=== PATIENT | male | born 1945 | race Caucasian/White ===

== ENCOUNTER 2020-11-15 10:33 | Inpatient (IN) | payer OTHER ==
[~2020-11-15] VITALS: Ht 180.3 cm; Wt 106.1 kg
[2020-11-15] VITALS (20 sets, daily range): BP systolic 130–174; BP diastolic 67–133
[~2020-11-15 10:33] MED LIST: AMLODIPINE BESY10 MG; MULTIVITAMINS1 EAC7; PERCOCET 5-3251 EACH PO
[2020-11-15 11:02] LABS: ABSOLUTE NEUTROPHILS 7.3 thou/uL (1.4-8.2); BASOPHILS 0.4 % (0.0-2.0); EOSINOPHILS 0.4 % (0.0-3.0); HEMOGLOBIN 14.5 gm/dL (14.0-18.0); LYMPHOCYTES 16.5 % (24.0-44.0); MCH 31.5 pg (26.0-34.0); MCV 95.4 fL (80.0-100.0); MONOCYTES 5.3 % (1.0-8.0); PLATELET COUNT 199 thou/uL (150-400); POLYS 77.4 % (36.0-66.0); RBC 4.61 mil/uL (4.50-6.00); RDW 14.4 % (10.5-14.5); WBC 9.4 thou/uL (4.0-11.0)
[2020-11-15] MEDS ORDERED: CHLORTHALIDONE25 MG PO (11:36)
[2020-11-15] MEDS ORDERED: EZALLOR SPRINKLE5 MG PO (11:36)
[2020-11-15] MEDS ORDERED: COZAAR100 MG PO (11:37)
[2020-11-15 11:46] LABS: ANION GAP 11 mmol/L (7-16); BUN 21 mg/dL (7-18); CALCIUM 10.1 mg/dL (8.5-10.1); CHLORIDE 104 mmol/L (98-107); CO2 21 mmol/L (21-32); GLUCOSE 162 mg/dL (74-106); POTASSIUM 3.9 mmol/L (3.5-5.1); SODIUM 136 mmol/L (136-145)
[2020-11-15 11:55] LABS: TROPONIN-I <0.06 ng/mL (<0.06)
[2020-11-16] VITALS (32 sets, daily range): BP systolic 124–156; BP diastolic 56–96
[2020-11-16 03:37] LABS: HEMATOCRIT 39.1 % (42.0-52.0); MCH 31.8 pg (26.0-34.0); MCHC 33.4 g/dL (28.0-37.0); MCV 95.1 fL (80.0-100.0); RBC 4.11 mil/uL (4.50-6.00); RDW 13.9 % (10.5-14.5); WBC 8.8 thou/uL (4.0-11.0)
[2020-11-16 03:46] LABS: CALCIUM 9.1 mg/dL (8.5-10.1); CREATININE 0.8 mg/dL (0.7-1.3); POTASSIUM 3.9 mmol/L (3.5-5.1)
--- NOTE | 2020-11-16 06:30 | NUR ---
PATIENT A NEW ADMIT FOLLOWING RIGHT PNEUMOTHORAX. PATIENT O/O X4. DENIES ANY RESENT ACCIDENT, TRAUMA OR FALL. 160ML MARKED OUTPUT OVERNIGHT FROM CHEST TUBE. NO CREPITUS, DRESSING CDI, L/S CLEAR, DIMINISHED RIGHT. VSS, AFEBRILE, ADEQUATE UOP 1350ML. RESTING WELL.
--- NOTE | 2020-11-16 07:40 | EKG ---
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 : 1945 Requested By: Kary Durbin Order Number: [id number] MD: Pollo Barrienots Measurements Intervals [place] Rate: 86 P: 107 SC: 163 QRS: 84 QRSD: 95 T: -19 QT: 359 QTc: 430 Interpretive Statements Sinus rhythm Borderline repolarization abnormality No previous ECG available for comparison Electronically Signed On 11-16-2020 7:40:18 TRANSPORTATION DISPATCH MANAGER by Pollo Barrientos [email or web address] <ELECTRONICALLY SIGNED> By: Pollo Barrientos MD, [facility] 11/16/20 0740 1037 [facility] Pollo Barrientos MD, FACC /EPI
--- NOTE | 2020-11-16 13:26 | NUR ---
ALERT AND ORIENTED AND VERY PLEASANT. VITALS STABLE AND STATED MINIMAL PAIN AT THE CHEST TUBE SITE. DIET ADVANCED AND TOLERATING WELL W/O NAUSEA. RIGHT CHEST TUBE TO SUCTION AND TIDALING NOTED. WILL CONTINUE WITH POC.
--- NOTE | 2020-11-16 16:32 | NUR ---
ASSESSMENT: CM REVIEWED CHART AND SPOKE WITH PT. PT IS ALERT AND ORIENTED X4. PT WAS ADMITTED DUE TO RIGHT PNEUMOTHORAX AND CURRENTLY HAS A CHEST TUBE IN PLACE. PT REPORTS THAT THEY LIVE IN A SPLIT LEVEL HOME WITH ABOUT 5 STEPS AND HANDRAILS ON EACH LEVEL. PT REPORTS THAT HE NORMALLY AMBULATES INDEPENDENTLY BUT DOES HAVE A CANE AND ROLLATER WALKER AT HOME IF NEEDED. PT REPORTS HAVING A GRAB BAR AND BUILT IN BENCH. PT REPORTS HE WAS GOING TO [facility] OUTPATIENT [facility]APY 3X/WEEK PRIOR TO ADMISSION AND REPORTS MAYBE HAVING HH YEARS AGO. PT REPORTS NEVER BEING TO A SNF. CM DISCUSSED ROLE. PT IS HOPEFUL HE WILL HAVE NO NEEDS AT DISCHARGE. CM WILL CONTINUE TO FOLLOW TO ASSIST NEEDED.
[2020-11-17] VITALS (22 sets, daily range): BP systolic 117–160; BP diastolic 44–96
--- NOTE | 2020-11-17 05:03 | NUR ---
PATIENT A/OX4. DENIES PAIN @ REST, 2/10 WITH MOVEMENT. CHEST TUBE IN PLACE, INTERMITTENT AIR BUBBLING THROUGH THE WATER SEAL CHAMBER WHEN PT COUGHS, NO CREPITUS NOTED AND TIDALING IS NORMAL.CHEST TUBE OUTPUT 100ML OVER NIGHT. UOP 1725ML AND NO BM. TEMP 98.8 THIS AM AND VSS.
--- NOTE | 2020-11-17 15:06 | NUR ---
PT RESTING COMFORTABLY TODAY. RIGHT CHEST TUBE IS TO WATER SEAL AND WAS CLAMMPED BY DR ARNOLD. ADEQUATE DIETARY INTAKE, ADEQUATE UOP, AFEBRILE, NO BM. PT HAS BEEN UPDATED AND EDUCATED ON PT CONDITION AND POC. LABS/IMAGES/MEDS REVIEWED PER [facility] POLICY. PT PROGRESSING TOWARDS POC.
--- NOTE | 2020-11-17 17:13 | NUR ---
PT TRANSFERED TO THE UNIT FROM THE ICU - ORIENTED TO ROOM AND BEDSPACE - ASSESSMENT CHARTED - PT WITH CO'S OF PAIN IN LEGS AND SCIATICA - GIVEN HYDOCODONE REQUESTED. MARTITA DIET AND FLUIDS. INTO VISIT. NO CO'S AT THE PRESENT TIME.
--- NOTE | 2020-11-18 04:03 | NUR ---
SLEPT MOST OF SHIFT. PAIN MEDICATION GIVEN FOR LEGS PAINS WITH NOTED RELIEF. MOVES SELF IN BED. CHEST TUBE REMAINS CLAMPED. NO COMPLAINTS OF SHORTNESS OF AIR OR CHEST PAIN. WORKING ON GOALS AND PLAN OF CARE FOR NOC. PROGRESSING SLOWLY TOWARDS DISCHARGE GOALS. CONTINUE TO ASSES CLOSELY.
[2020-11-18 05:31] VITALS: BP 126/49
[2020-11-18 07:26] VITALS: BP 123/65
[2020-11-18 11:07] VITALS: BP 104/54
[2020-11-18 15:34] VITALS: BP 119/59
--- NOTE | 2020-11-18 16:57 | NUR ---
ASSUMED CARE PT APPROX 1050. PT ALERT AND ORIENTED. C/O PAIN IN LEGS MANAGED WITH PO PAIN MEDS. O2 SATS WNL 2-3 L. AT APPROX 1430 RADIOLOGY INFORMED NURSE OF LUNG BEING DEFLATED AND CHEST TUBE NOT SEEN ON XRAY. PHYSICIAN NOTIFIED. CHEST TUBE REINSERTED BY WASTEWATER ENGINEER. CXR ORDERED FOR CONFIRMATION OF PLACEMENT. PT C/O SORENESS AT SITE MANAGED WITH IV PAIN MEDS. OLD CHEST TUBE INSERTION SITE STITCHED AND DRESSED. PT CURRENTLY RESTING IN BED DENIES NEEDS AT THIS TIME. WILL CONTINUE TO MONITOR AND FOLLOW POC. WILL PASS ON TO NOC RN.
[2020-11-18 20:30] VITALS: BP 94/61
[2020-11-19 02:25] VITALS: BP 119/54
[2020-11-19 04:45] VITALS: BP 106/51
--- NOTE | 2020-11-19 07:19 | EKG ---
[place] [address] [facility] [place] [address] ELECTROCARDIOGRAM REPORT Name: CLEVE GRANGER Room #: 212-P ADM IN M.R.#: [id number] Admission: 11/15/20 Attend Phys: Elie Ramos MD Discharge: Date of : 47 Report #: [id number] [facility] Test Date: 2020-11-19 Test Time: 06:30:19 Pat Name: CLEVE GRANGER Department: Room: 212 P Gender: M Detective: 2N : 1945 Requested By: Sherrie Rivera Order Number: [id number] MD: Jorden Jay Measurements Intervals [place] Rate: 125 P: WA: QRS: 60 QRSD: 90 T: 7 QT: 326 QTc: 471 Interpretive Statements Atrial fibrillation Borderline repol abnrm, inferolateral leads Baseline wander in lead(s) V1 Compared to ECG 11/15/2020 10:37:34 Sinus rhythm no longer present Electronically Signed On 11-19-2020 7:19:07 FIBERLINE SUPERVISOR by Jorden Jay [email or web address] <ELECTRONICALLY SIGNED> By: Jorden Jay MD, [facility] 11/19/20718 9 9 Jorden Jay MD, [facility] /EPI
[2020-11-19 08:07] VITALS: BP 114/62
--- NOTE | 2020-11-19 08:40 | NUR ---
0600 PATIENT SLEPT MOST OF SHIFT. CHEST TUBE TO CONTINOUS -40 SUCTION. DENIES FEELING OF SHORTNESS OF AIR OR CHEST PAIN. TELEMETRY SHOWS SR/SA MOST OF SHIFT. AT 0555 PATIENT WENT INTO AFIB RATES 110-140's. had one episode of 8 beats VTACH last noc. NOTIFIED BANK CONSULTANT AND ORDERS FOR ONETIME IVP LOPRESSOR. GAVE MEDICATION. 0700 RATE NOW 90-120 AND REMAINS IN AFIB. NOT PROGRESSING TOWARSDS DISCHARGE AT THIS TIME. CONTINUE TO ASSES CLOSELY.
[2020-11-19 09:23] LABS: HEMATOCRIT 37.1 % (42.0-52.0); HEMOGLOBIN 12.3 gm/dL (14.0-18.0); MCH 31.6 pg (26.0-34.0); MCHC 33.1 g/dL (28.0-37.0); MCV 95.6 fL (80.0-100.0); RBC 3.88 mil/uL (4.50-6.00); RDW 14.4 % (10.5-14.5); WBC 10.4 thou/uL (4.0-11.0)
[2020-11-19 09:33] LABS: CALCIUM 9.2 mg/dL (8.5-10.1); CREATININE 1.7 mg/dL (0.7-1.3); POTASSIUM 3.9 mmol/L (3.5-5.1)
--- NOTE | 2020-11-19 11:42 | 2DMMODE ---
[facility] [place] [place] [address] 2 D/M-MODE ECHOCARDIOGRAM Name: CLEVE GRANGER Room #: 212-P ADM IN M.R.#: [id number] Admission: 11/15/20 Attend Phys: Elie Ramos MD Discharge: Date of : 47 Report #: [id number] THIS REPORT FOR: cc: DORI DOWLING Physician not on staff Ander Nogueira MD ~ APPROVED REPORT Study performed: 11/19/2020 10:22:17 EXAM: Comprehensive 2D, Doppler, and color-flow Echocardiogram Patient Location: Bedside Room #: 212 Status: routine BSA: 2.17 HR: 90 bpm BP: 114/62 mmHg Rhythm: Atrial Fibrillation Other Information Study Quality: Adequate Indications Atrial Fibrillation Hypertension/HDD 2D Dimensions RVDd: 34.10 mm IVSd: 13.65 (7-11mm) LVOT Diam: 19.44 (18-24mm) LVDd: 40.56 mm PWd: 10.39 (7-11mm) LVDs: 23.05 (25-40mm) Volumes Left Atrial Volume (Systole) Single Plane 4CH: 51.65 mL Single Plane 2CH: 49.76 mL LA ESV Index: 29.00 mL/m2 Aortic Valve AoV Peak Otilio.: 1.30 m/s AO Peak Gr.: 6.74 mmHg LVOT Max P.00 mmHg LVOT Max V: 1.00 m/s JANET Vmax: 2.29 cm2 [facility] [address] [place] [address] 2 D/M-MODE ECHOCARDIOGRAM Name: CLEVE GRANGER Room #: 212-P ADM IN M.R.#: [id number] Admission: 11/15/20 Attend Phys: Elie Ramos MD Discharge: Date of : 47 Report #: [id number] Pulmonary Valve PV Peak Otilio.: 1.26 m/s PV Peak Gr.: 6.33 mmHg Left Ventricle The left ventricle is normal size. There is normal LV segmental wall motion. There is normal left ventricular wall thickness. Left ventricular systolic function is normal. The left ventricular ejection fraction is within the normal range. LVEF is 55-60%. This study is not technically sufficient to allow evaluation of the LV diastolic function due to atrial fibrillation. Right Ventricle The right ventricle is normal size. The right ventricular systolic function is normal. Atria The left atrium size is normal. The right atrium size is normal. Aortic Valve The aortic valve is normal in structure. No aortic regurgitation is present. There is no aortic valvular stenosis. Mitral Valve The mitral valve is normal in structure. There is no mitral valve regurgitation noted. No evidence of mitral valve stenosis. Tricuspid Valve The tricuspid valve is normal in structure. There is no tricuspid valve regurgitation noted. Pulmonic Valve The pulmonary valve is normal in structure. There is no pulmonic valvular regurgitation. Great Vessels The aortic root is normal in size. The inferior vena cava is not well visualized. Pericardium There is no pericardial effusion. <Conclusion> The left ventricle is normal size. LVEF is 55-60%. The aortic valve is normal in structure. [facility] [address] [place] [address] 2 D/M-MODE ECHOCARDIOGRAM Name: CLEVE GRANGER Room #: 212-P ADM IN M.R.#: [id number] Admission: 11/15/20 Attend Phys: Elie Ramos MD Discharge: Date of : 47 Report #: [id number] The mitral valve is normal in structure. The tricuspid valve is normal in structure. The pulmonary valve is normal in structure. There is no pericardial effusion. <ELECTRONICALLY SIGNED> By: Ander Nogueira MD 11/19/20 1142 1142 114 Ander Nogueira MD /INF
[2020-11-19 11:50] VITALS: BP 126/67
[2020-11-19 15:53] VITALS: BP 113/55
--- NOTE | 2020-11-19 18:34 | NUR ---
ASSUMED CARE OF PT AT SHIFT CHANGE. ASSESSMENTS CHARTED. MEDS GIVEN PER JAN. PT A&OX2, C/O PAIN TREATED WITH PO MEDS WITH PARTIAL RELIEF. CARDIZEM DRIP CONTINUES. WILL CONTINUE TO MONITOR AND FOLLOW POC.
[2020-11-19 19:43] VITALS: BP 112/50
[2020-11-20 00:31] VITALS: BP 101/51
[2020-11-20 03:23] VITALS: BP 101/54
--- NOTE | 2020-11-20 06:41 | NUR ---
SLEPT PART OF SHIFT. WATCHING TV AT TIMES. PAIN MEDICATION GIVEN EVERY 4 HOURS NEEDED. STATES NON CARDIAC CHEST PAIN IS BETTER AND SO IS LEG PAINS. CHEST TUBE REMAINS TO WALL SUCTION -40. WORKING ON GOALS AND PLAN OF CARE FOR NOC. CONTINUE TO ASSES CLOSELY.
[2020-11-20 08:45] VITALS: BP 91/46
[2020-11-20 08:57] LABS: CALCIUM 9.2 mg/dL (8.5-10.1); CREATININE 1.6 mg/dL (0.7-1.3); POTASSIUM 3.3 mmol/L (3.5-5.1)
[2020-11-20 11:55] VITALS: BP 97/47
--- NOTE | 2020-11-20 15:49 | NUR ---
PT ACCEPTED TO 5 INPATIENT REHAB WITH ANTICIPATED TRANSFER THURSDAY 11/23. PT WILL NEED A NEGATIVE COVID TEST 24-48 HOURS PRIOR TO ADMISSION.
[2020-11-20 17:15] VITALS: BP 99/71
--- NOTE | 2020-11-20 17:47 | NUR ---
PT/OT/5N following. Per the rehab operation supervisor, pt evaluated and would be a good acute rehab candidate once chest tube and cardizem gtt dc'd. Will need new covid test. They would have a bed for him on Monday if ready.
--- NOTE | 2020-11-20 19:36 | NUR ---
ASSUMED CARE PT SHIFT CHANGE. ASSESSMENTS CHARTED.MEDS GIVEN PER JAN VSS BP SOFT- MONITORED. C/O PAIN MANAGED WITH PO PAIN MEDS. CHEST TUBE REMAINS INTACT TO -20 SUCTION. PT UP WITH PHYS THERPAY TOLERATING LESS THAN ADEQUATE- SOB AND HR HIGH. DILT GTT TITRATED PER ORDERS. CURRENTLY INFUSING 5MG/HR. SPOUSE UPDATED ON POC. CURRENTLY RESTING IN BED. PLAN FOR DR GONZALEZ CONSULT AND POSSIBLE REHAB ADMISSION. CONTINUING TO MONITOR AND FOLLOW POC.
[2020-11-20 20:18] VITALS: BP 132/60; BP 152/59
[2020-11-21 00:30] VITALS: BP 110/51
[2020-11-21 03:38] LABS: CALCIUM 8.6 mg/dL (8.5-10.1); POTASSIUM 3.9 mmol/L (3.5-5.1)
[2020-11-21 04:45] VITALS: BP 98/51
--- NOTE | 2020-11-21 04:56 | NUR ---
CARE ASSUMED 1900. PT ALERT AND ORIENTED. DENIES SOB. CHEST TUBE INTACT. NOTED EXTENSIVE AIR LEAK, EVIDENT IN CHAMBER WATER BUBBLE. PT REPORTS CHEST TUBE SITE PAIN, HYDROCODONE PRN. OVERNIGHT, PT REPORTED FEELING MORE ANXIOUS THAN USUAL. DENIES CHEST PAIN, BUT REPORTS ACID REFLUX. DENTAL HYGIENIST RECORD CENTER COORDINATOR NOTIFIED. HYDROXYZINE X 1, AND CALCIUM CARBONATE GIVEN. PT SODIUM LEVELS @ 128, NPO NOTIFIED, 1 BAG OF NS ORDER. POTASSIUM STABLE THIS AM AFTER REPLACEMENT YESTERDAY. DENIES ANY OTHER CONCERNS. WILL CONTINUE TO MONITOR AND FOLLOW POC.
[2020-11-21 08:03] VITALS: BP 114/62
[2020-11-21 11:28] VITALS: BP 94/62
[2020-11-21 15:46] LABS: HEMATOCRIT 34.9 % (42.0-52.0); HEMOGLOBIN 11.5 gm/dL (14.0-18.0); MCV 93.9 fL (80.0-100.0); RBC 3.71 mil/uL (4.50-6.00); RDW 13.8 % (10.5-14.5); WBC 9.8 thou/uL (4.0-11.0)
[2020-11-21 16:07] LABS: CALCIUM 9.1 mg/dL (8.5-10.1); CREATININE 2.1 mg/dL (0.7-1.3); POTASSIUM 3.9 mmol/L (3.5-5.1)
[2020-11-21 17:33] VITALS: BP 99/56
--- NOTE | 2020-11-21 18:29 | NUR ---
PT IS ALERT AND ORIENTED X4, PLEASANT. PT HAS CHEST TUBE IN R LATERAL CHEST, SET AT -20. PT/OT CONSULTED; PT UP TO CHAIR. DR LORENZO CONSULTED. PT HAS LOWER EXTREMITY PAIN, WITH PAIN IN R KNEE, L SCIATIC PAIN. INCENTIVE SPIROMETER EDUCATION CONDUCTED. PT IS BREATHING ROOM AIR, O2 SAT 96%. POC IS TO CONTINUE TO MONITOR CHEST TUBE SYSTEM FOR AIR LEAK/AIR BUBBLING. FALL PRECAUTIONS IN PLACE. NO CONCERNS AT THIS TIME.
[2020-11-21 20:15] VITALS: BP 125/56
[2020-11-22 03:16] LABS: ABSOLUTE NEUTROPHILS 6.1 thou/uL (1.4-8.2); BASOPHILS 0.7 % (0.0-2.0); EOSINOPHILS 1.1 % (0.0-3.0); HEMOGLOBIN 10.7 gm/dL (14.0-18.0); LYMPHOCYTES 12.8 % (24.0-44.0); MCH 31.8 pg (26.0-34.0); MCHC 33.6 g/dL (28.0-37.0); MCV 94.6 fL (80.0-100.0); MONOCYTES 9.2 % (1.0-8.0); PLATELET COUNT 195 thou/uL (150-400); POLYS 76.2 % (36.0-66.0); RBC 3.38 mil/uL (4.50-6.00); RDW 14.2 % (10.5-14.5)
--- NOTE | 2020-11-22 03:37 | NUR ---
ASSUMED CARE FROM OUTGOING RN @MIDNIGHT. PT A&OX4. IV INTACT WITH FLUIDS INFUSING. CHEST TUBE IN PLACE. URINAL AT BEDSIDE. PAIN MANAGED BY PO PAIN MEDS. FALL PREC IN PLACE AND CALL LIGHT AT REACH WILL CONT TO MONITOR.
[2020-11-22 03:44] LABS: ALBUMIN 2.3 g/dL (3.4-5.0); CALCIUM 8.7 mg/dL (8.5-10.1); MAGNESIUM 2.7 mg/dL (1.8-2.4); PHOSPHORUS 4.6 mg/dL (2.5-4.9); POTASSIUM 4.3 mmol/L (3.5-5.1); TOTAL BILIRUBIN 0.3 mg/dL (0.2-1.0); TOTAL PROTEIN 6.1 g/dL (6.4-8.2)
[2020-11-22 04:45] VITALS: BP 118/47
[2020-11-22 08:00] VITALS: BP 126/51
--- NOTE | 2020-11-22 09:21 | HC ---
[facility] [place] [address] CONSULTATION Name: CLEVE GRANGER Room #: 212-P ADM IN M.R.#: [id number] Admission: 11/15/20 Attend Phys: Elie Ramos MD Discharge: Date of : 47 Report #: [id number] THIS REPORT FOR: cc: DORI DOWLING Physician not on staff Caleb Calhoun MD ~ DATE OF SERVICE: 11/21/2020 We were asked by Dr. Fry to see the patient. HISTORY OF PRESENT ILLNESS: The patient is a 75-year-old with a persistent air leak from right spontaneous pneumothorax. The patient presented to the Emergency Department with chest pain, shortness of breath on 11/15, chest tube was placed and the patient has been followed since that time. Unfortunately, air leak has not sealed. The patient has a remote history of heavy smoking, but he says he quit 16 years ago. Since admission, the patient has had a cardiac echo that shows satisfactory ejection fraction without important valvular abnormalities. The patient states he was in atrial fibrillation when he was admitted, this appears to have been treated with IV diltiazem with resolution, current anticoagulation is only Lovenox from what I can tell given in a therapeutic level. Chest x-ray currently shows chest tube in place with trivial pneumothorax and good expansion, but there is still a small air leak in the chest tube. PAST MEDICAL HISTORY: Significant for hypertension, hyperlipidemia and as mentioned, prior smoking history. MEDICATIONS AT HOME: Includes amlodipine, multivitamin, rosuvastatin, chlorthalidone, losartan. ALLERGIES: None known. SOCIAL HISTORY: Tobacco use in the past, alcohol use presently, the patient is . He is retired, but claims to be an active fellow otherwise. REVIEW OF SYSTEMS: I agree with the review of systems as dictated in the Emergency Department. In addition, however, the patient states that he has been treated for sciatica and low back pain recently. PHYSICAL EXAMINATION: VITAL SIGNS: Today; temperature 36.6, heart rate 80, blood pressure 114/62, respiratory rate 18, and pulse oximetry 96% on 2 liters. HEENT: Normocephalic. No scleral icterus, no arcus. NECK: No mass, no bruit audible. [facility] [address] [place] [address] CONSULTATION Name: CLEVE GRANGER Room #: 212-P ADM IN M.R.#: [id number] Admission: 11/15/20 Attend Phys: Elie Ramos MD Discharge: Date of : 47 Report #: [id number] CHEST: Has some rhonchi on the right side. HEART: Rhythm appears regular. ABDOMEN: Soft, somewhat obese. EXTREMITIES: No clubbing, cyanosis or edema. NEUROLOGIC: No motor or sensory dysfunction. SKIN: No rash or infection. ASSESSMENT: Spontaneous right pneumothorax with persistent air leak. PLAN: If leak persists, then video-assisted thoracoscopy would be appropriate. Risks and details of this were discussed. Options and alternatives were reviewed. The patient understands all of this and agrees. We will follow the patient and determine when surgery is safe. We would like to avoid anything other than IV Lovenox or heparin at this point as anticoagulation would delay surgery. Thank you for the consult. <ELECTRONICALLY SIGNED> By: Caleb Calhoun MD 11/22/20 0921 1217 1441 Caleb Calhoun MD /nt
[2020-11-22 11:39] VITALS: BP 104/52
--- NOTE | 2020-11-22 15:51 | NUR ---
PT ALERT AND ORIENTED X4, PLEASANT. PT STATES HE HAS MORE MOBILITY IN HIS LEGS, AND EXPERIENCING LESS DISCOMFORT. POC INCLUDES PAIN MGMT. PT SEEN BY DR GROVE, DR LORENZO. INTENTION IS SURGERY 11/23/2020. HEPARIN PROTOCOL STARTED. RENAL US CONDUCTED. PT AT THE BEDSIDE. CHEST TUBE DRAIN ASSESSED, DRESSING CLEAN, DRY, INTACT. CHEST TUBE SYSTEM SET AT -20, HAS INTERMITTENT BUBBLING. PT USES IS AT THE BEDSIDE. FALL PRECAUTIONS IN PLACE. NO CONCERNS AT THIS TIME.
[2020-11-22 15:54] VITALS: BP 107/46
[2020-11-22 20:27] VITALS: BP 102/53
[2020-11-23] VITALS (19 sets, daily range): BP systolic 87–127; BP diastolic 41–62
[2020-11-23 03:15] LABS: BASOPHILS 0.6 % (0.0-2.0); EOSINOPHILS 2.9 % (0.0-3.0); HEMATOCRIT 34.3 % (42.0-52.0); HEMOGLOBIN 11.3 gm/dL (14.0-18.0); LYMPHOCYTES 16.4 % (24.0-44.0); MCV 93.9 fL (80.0-100.0); MONOCYTES 10.1 % (1.0-8.0); PLATELET COUNT 239 thou/uL (150-400); RBC 3.65 mil/uL (4.50-6.00); RDW 14.2 % (10.5-14.5); WBC 7.1 thou/uL (4.0-11.0)
[2020-11-23 03:22] LABS: PROTIME 10.3 Seconds (9.3-11.4)
[2020-11-23 03:28] LABS: CALCIUM 9.3 mg/dL (8.5-10.1); CREATININE 1.5 mg/dL (0.7-1.3); MAGNESIUM 2.5 mg/dL (1.8-2.4); PHOSPHORUS 3.7 mg/dL (2.6-4.7); POTASSIUM 4.1 mmol/L (3.5-5.1)
--- NOTE | 2020-11-23 08:37 | NUR ---
ASSESSMENTS CHARTED, MEDS CHARTED GIVEN. PATIENT RESTING IN BED DURING SHIFT. PATIENT HAS STRESS PNEUMOTHORAX WITH CHEST TUBE TO -20 SUCTION, LEAK EXISTS. PATIENT SCHEDULED TO GO TO SURGERY THIS MORNING TO REPAIR LEAK AND BRONCHOSTOMY TODAY. PATIENT WAS NPO SINCE MIDNIGHT FOR SURGERY, PATIENT DID TAKE A SMALL SIP AROUND 0500. PATIENT HAD NOT HAD A BOWEL MOVENT FOR 8 DAYS. PATIENT WAS STARTED ON SUPPOSITORIES AND MIRALAX. PATIENT HAD ONE SMALL BOWEL MOVEMENT OF 6 OR 7 SM PELLETS OF FECAL MATTER. PATIENT WAS TRANSFERED TO PREOP THIS MORNING ABOUT 0630.
--- NOTE | 2020-11-23 10:48 | NUR ---
Pt PLACED ON HOLD FROM P.T. DUE TO SURGERY TODAY. REQUEST NEW POST OP P.T. ORDERS WHEN PT DEEMED STABLE TO PARTICIPATE IN THERAPEUTIC INTERVENTIONS.
--- NOTE | 2020-11-23 11:17 | NUR ---
PT HAVING SURGERY TODAY SO NOT SEEN. REQUEST NEW OT ORDERS S/P SURGERY STATUS MAY CHANGE
--- NOTE | 2020-11-23 18:00 | NUR ---
>>>>>>>>>report received from previous rn. at 1110, pt received in icu #251 per icu bed. attached to quality assurance monitor body, r judson zeroed, optimal waveform & reading 10mm greater than nibp. L pleural chest tube to -20 cm suction, no air leak, flucuation in tubing. afib with frequent brief runs of rvr. pt unable to get comfortable in bed. psychological stress evaluator fentanyl infusing. splinting r lateral chest to decrease discomfort, adequate urine output. present, given icu brochure along with privacy code. she is providing support to pt. >>>>>>>>>>with use of psychological stress evaluator pain level became controlled- down to level 1/10. repositioned in bed for comfort with 2 assist. well tolerated. hr improving as pain is controlled. MISSAEL Cisneros present to provide teaching and support to pt and his . >>>>>>>>>>1600 napped in afternoon with at bedside. when awake pulling 1,000cc on incentive spirometer. >>>>>>>>>>1800 Insulin gtt started for glucose-172. pt motivated, progressing.
[2020-11-24] VITALS (13 sets, daily range): BP systolic 85–124; BP diastolic 44–64
[2020-11-24 05:05] LABS: CREATININE 1.1 mg/dL (0.7-1.3); POTASSIUM 4.3 mmol/L (3.5-5.1)
[2020-11-24 05:15] LABS: HEMATOCRIT 32.5 % (42.0-52.0); HEMOGLOBIN 10.6 gm/dL (14.0-18.0); MCHC 32.7 g/dL (28.0-37.0); MCV 94.9 fL (80.0-100.0); RBC 3.43 mil/uL (4.50-6.00); RDW 14.8 % (10.5-14.5); WBC 13.3 thou/uL (4.0-11.0)
--- NOTE | 2020-11-24 05:42 | NUR ---
Patient stable through the night. Slept on/off. Used Incentive spirometry and TCDB frequently. Pain controlled with PARTS SALVAGER Fentanyl. Blood sugars stable while on insulin gtt. See flow sheet for details. No family called this shift. Patient did speak with family on his cell phone. Patient is progressing towards goals. See documentation on interventions for assessment details.
--- NOTE | 2020-11-24 14:50 | NUR ---
ON-GOING ASSESSMENT: CM REVIEWED CHART. PT CONTINUES TO HAVE CT TO WATER SEAL. PLANS ARE TO DISCHARGE TO 5N ONCE MEDICALLY STABLE. 5N FOLLOWING.
[2020-11-25] VITALS (8 sets, daily range): BP systolic 98–134; BP diastolic 54–71
--- NOTE | 2020-11-25 06:06 | NUR ---
ASSUMED PT CARE AT 1900. VSS. PT A&0X4. PT RESTED WELL. ALL NOC. NO ISSUES. GREAT U/O, 525ML THIS SHIFT. PT IS STABLE, CHEST TUBE INTACT, NO AIRLEAK, NO CREPITUS NOTED. WILL CONTINUE TO CLOSELY MONITOR PT.
--- NOTE | 2020-11-25 08:34 | NUR ---
Assess for length of stay. Pneumothorax and s/p VATS with chest tubes. Eating 90-100% meals, no wt loss. BG elevated and need for SS insulin. Low nutrition risk, awaiting medical stabilization for admit to 5N rehab.
--- NOTE | 2020-11-25 10:29 | PATH ---
[facility] [address] [place] [address] PATHOLOGY RPT PROCEDURE Name: ROMEO VALDOVINOS Room #: 251-P ADM IN M.R.#: [id number] Admission: 11/15/20 Date of : 47 Discharge: Report #: [id number] Path Case #: [id number] [facility] Accession Number: [id number] . 01 Material submitted: . PART A: lung - APEX RIGHT UPPER LOBE. Modifiers: right, upper PART B: lung - RIGHT MIDDLE LOBE BLEB. Modifiers: right, middle lobe PART C: lung - RIGHT UPPER LOBE BLEB. Modifiers: right, upper PART D: lung - RIGHT LOWER LOBE BLEB. Modifiers: right, lower . 01 Clinical history: . VIDEO ASSITSTED THOROSCOPY BRONCHOSCOPY RESECTION BLEBS RIGHT PNEUMOTHORAX . 02 Diagnosis: A. Lung, apex right upper lobe, resection: - Emphysematous changes. - Pleural surface showing chronic inflammation and hemorrhage, history of right pneumothorax. - Negative for malignancy. . B. Lung, right middle lobe bleb, resection: - Fragments lined entirely by fibrinous exudate, reactive pleural surface and inflammation consistent with repair. - Negative for malignancy. . C. Lung, right upper lobe bleb, resection: - Extensive emphysematous changes. - Intraparenchymal hemorrhage along with inflammation and congested vessels. - Fibrinous exudate along with marked reactive mesothelial hyperplasia as well as chronic inflammation consistent with repair. - Negative for malignancy. . D. Lung, right lower lobe bleb, resection: - Marked emphysematous changes. - Congested vessels. - Subpleural cysts. - Pleural surface showing fibrinous exudate along with chronic inflammation and repair. (IUV:pit 11/24/2020) QTP 11/24/2020 1459 Local . 02 Electronically signed: . Sarah Meraz MD, Pathologist [address] [address] PATHOLOGY RPT PROCEDURE Name: ROMEO VALDOVINOS Room #: 251-P ADM IN .R.#: [id number] Admission: 11/15/20 Date of : 47 Discharge: Report #: [id number] Path Case #: [id number] I- [id number] . 01 Gross description: . A. The specimen is received in formalin, labeled "Romeo Valdovinos, apex right upper lobe". Received is a wedge resection of pink-vargas lung tissue with a stapled margin of resection measuring 5.9 x 2.2 x 1.3 cm in greatest dimensions. The armando are removed and the new margin is inked black. Sectioning reveals pink-vargas, spongy cut surfaces throughout. No distinct nodules or lesions are noted grossly. The specimen is submitted representatively in cassettes A1 through A3. . B. The specimen is received in formalin, labeled "Romeo Valdovinos, right middle lobe bleb". Received is a wedge resection of pink-vargas lung tissue with attached pale vargas fibrous capsular tissue with a stapled margin of resection measuring 3.9 x 3.3 x 0.9 cm in greatest dimensions. The armando are removed and the new margin is inked black. Sectioning reveals a previously ruptured structure measuring 4.0 cm, which is devoid of content. The specimen is submitted representatively in cassettes B1 through B3. . C. The specimen is received in formalin, labeled "Romeo Valdovinos, right upper lobe bleb". Received is a wedge resection of pink-vargas lung tissue with a stapled margin of resection measuring 4.8 x 2.0 x 0.5 cm in greatest dimensions. The pleural surface displays an air-filled pocket measuring 1.2 cm filled with air. The armando are removed and the new margin is inked black. Sectioning reveals pink-vargas, spongy cut surfaces with no grossly distinct nodules or lesions. The specimen is submitted entirely in cassettes C1 through C3. . D. The specimen is received in formalin, labeled "Romeo Valdovinos, right lower lobe bleb". Received is a wedge resection of pink-vargas lung tissue with a stapled margin of resection measuring 6.6 x 4.2 x 1.5 cm in greatest dimensions. The armando are removed and the new margin is inked black. Sectioning reveals pink-vargas to pink-red, spongy cut surfaces throughout. No distinct nodules or lesions are noted grossly. The specimen is submitted representatively in cassettes D1 through D3. (CAA; 11/23/2020) QAC/QAC 11/23/2020 1740 Local . 02 Pathologist provided ICD-10: R09.1, R04.89, J98.4 . 02 CPT . 219511, 865251, 290560, 955440 Specimen Comment: A courtesy copy of this report has been sent to [phone], [phone] Specimen Comment: [id number] Specimen Comment: Report sent to / DR EM [facility] [address] [place] [address] PATHOLOGY RPT PROCEDURE Name: ROMEO VALDOVINOS Room #: 251-P ADM IN M.R.#: [id number] Admission: 11/15/20 Date of : 47 Discharge: Report #: [id number] Path Case #: [id number] Specimen Comment: A duplicate report has been generated due to demographic updates. Performed at: [facility] [place] [address], [place], [place] [address] MD Carlos Eduardo Chua MD Phone: [phone] Performed at: [facility] [address], [place] [id number] MD Sarah Meraz MD Phone: [phone]
--- NOTE | 2020-11-25 19:59 | NUR ---
pt transfered to the unit from the icu. pt oriented to room and bedspace. pt up to the bsc for bm - hr elevated with movt and bm - pt had large bm and then back to bed - hr improved. no co's of pain or nausea. appears to be comfortable at the present time.
--- NOTE | 2020-11-26 03:04 | NUR ---
ASSESSED AT START OF SHIFT. PAIN MEDICATION GIVEN FOR LEFT SIDE PAIN. BSG CHECKED AND INSULIN GIVEN. PT ON RA. URINAL BY BEDSIDE AND PT VOIDS. UP WITH SBA TO THE BSC. HAD A HUGE BM AT SHIFT CHANGE. METOPROLOL GIVEN FOR INCREASED HR. FALL PREC IN PLACE.
[2020-11-26 03:35] VITALS: BP 114/71
[2020-11-26 05:06] LABS: CREATININE 0.9 mg/dL (0.7-1.3); POTASSIUM 4.6 mmol/L (3.5-5.1)
[2020-11-26 08:13] VITALS: BP 122/68
[2020-11-26 11:33] VITALS: BP 92/57
--- NOTE | 2020-11-26 13:29 | NUR ---
Case discussed with the care team. Chest tube dc'd today. Elev heart rate addressed with med adjustment. If heart rate stable, can go to [facility] tomorrow. [facility] liason confirms they will have a bed for the pt.
[2020-11-26 15:18] VITALS: BP 106/68
--- NOTE | 2020-11-26 15:20 | NUR ---
PT WORKED WITH PT/OT TODAY, PLAN TO TRANSFER TO REHAB TOMORROW. AFIB/RVR RESOLVED. AFEBRILE, NO BM, ADEQUATE UOP, TOLERATING DIET. PT AND HAVE BEEN UPDATED AND EDUCATED ON PT CONDITION AND POC. PT PROGRESSING TOWARDS POC.
[2020-11-26 19:20] VITALS: BP 115/58
[2020-11-27 04:00] VITALS: BP 128/64
--- NOTE | 2020-11-27 06:30 | NUR ---
PT SLEPT ON AND OFF THROUGH THE NIGHT. A&0X4. USING URINAL AT THE BEDSIDE. AFIB ON THE MONITOR. VSS. FALL PRECAUTIONS IN PLACE; UPX1. PROGRESSING TO TOWARD POC, CONTINUING TO ASSESS ACCORDING TO CARE PLAN.
[2020-11-27] MEDS ORDERED: VITAMIN D21250 MC1 PO (09:36)
[2020-11-27] MEDS ORDERED: XARELTO20 MG PO (09:36)
[2020-11-27] MEDS ORDERED: CARDIZEM CD120 MG PO (09:36)
[2020-11-27] MEDS ORDERED: COZAAR 50 MG TA50 M1 PO (09:36)
[2020-11-27] MEDS ORDERED: PEPCID20 MG PO (09:36)
[2020-11-27] MEDS ORDERED: METOPROLOL SUCC25 M1 PO (09:36)
[2020-11-27] MEDS ORDERED: HYDROCODON-ACE1 EAC7 PO (09:36)
[2020-11-27] MEDS ORDERED: GABAPENTIN 100100 MG PO (09:36)
--- NOTE | 2020-11-27 10:27 | O ---
[facility] [address] [place] [address] OPERATIVE REPORT Name: CLEVE GRANGER Room #: 205-P ADM IN M.R.#: [id number] Admission: 11/15/20 Attend Phys: Elie Ramos MD Discharge: Date of : 47 Report #: [id number] THIS REPORT FOR: cc: DORI DOWLING Physician not on staff Caleb Calhoun MD ~ DATE OF SERVICE: 11/23/2020 PREOPERATIVE DIAGNOSIS: Persistent air leak, status post spontaneous right pneumothorax. POSTOPERATIVE DIAGNOSIS: Persistent air leak, status post spontaneous right pneumothorax. OPERATION: Bronchoscopy, right video-assisted thoracoscopy with wedge resection of blebs and chemical pleurodesis. SURGEON: Caleb Calhoun M.D. DIGITAL COMMENTATOR: MISSAEL Sims. ANESTHESIA: General. INDICATIONS: The patient is a 75-year-old with a small persistent air leak, status post right spontaneous pneumothorax. The patient was admitted with shortness of breath and found to have significant right pneumothorax. Chest tube was placed with good reexpansion of the lung, but there has been a persistent air leak. We also note the patient has a new diagnosis of atrial fibrillation this admission. FINDINGS AND TECHNIQUE: After general anesthesia was established, flexible diagnostic bronchoscopy was performed. No endobronchial lesions were noted. A double lumen endotracheal tube was placed and its position was checked with the bronchoscope. The patient was positioned with right side up. Exposure was obtained through typical video-assisted thoracoscopy ports. There were multiple blebs seen in the lower lobe primarily. There was a small area that was suspicious at the apex of the upper lobe, but largely the pathology seemed to involve the lower lobe. [facility] [address] [address] OPERATIVE REPORT Name: CLEVE GRANGER Room #: 205-P ADM IN M.R.#: [id number] Admission: 11/15/20 Attend Phys: Elie Ramos MD Discharge: Date of : 47 Report #: [id number] A wedge resection was done of the apex of the upper lobe and 3 separate wedge resections were done of the lower lobe to encompass obvious blebs. After the wedge resections were done, the lung was inspected. Hemostasis was satisfactory and no other suspicious areas of lung leak were seen. The right lung was inflated and deflated several times to seek additional leaks. When we were satisfied with the wedge resections, a chest tube was brought to the lowest port and doxycycline solution was instilled. The tube was secured in position and the other ports were closed and no air leak was seen via positive pressure. Incisions were closed and the patient was weaned from anesthesia. The patient tolerated the procedure well. All counts reported as correct. The patient was taken to the recovery area in good condition having tolerated the procedure well. <ELECTRONICALLY SIGNED> By: Caleb Calhoun MD 11/27/20 1027 0927 1001 Caleb Calhoun MD /nt
--- NOTE | 2020-11-27 10:54 | NUR ---
Pt agreeable to dc to [facility] today and has been cleared by the medical team. Pt states he will contact his so she can bring in a walking shoes and a couple changes of clothing for rehab. He is motivated and looking forward to be out of bed more with therapy sessions. Case discussed with the care team.
[2020-11-27 12:20] VITALS: BP 97/49
--- NOTE | 2020-11-27 12:59 | NUR ---
PATIENT IS PROGRESSING TOWARDS OUTCOME GOALS HE IS UP IN THE CHAIR AND AMBULATED WITH PT IN THE HALLWAYS. HEART RATE BRIEFLY TO 140 BUT DECREASED TO 90'S WITH BRIEF REST. WILL CONTINUE TO MONITOR. REPORT CALLED TO TALON THOMAS ON THE REHAB UNIT.
--- NOTE | 2020-11-27 13:26 | NUR ---
PATIENT DISCHARGE TO REHAB WITH BELONGINGS VIA W/C. ACCOMPANIED BY HIS .
== END 2020-11-27 13:28 | DRG 163 ==
LOC: ER 10:33 → EROBS 13:00 → ICU 13:00 → 2N 11-17 16:28 → EROBS 11-23 08:28 → TBACV 11-23 09:50 → ICU 11-23 11:17 → 2N 11-25 18:05
PROVIDERS: Emergency Medicine; Internal Medicine; Nurse Practitioner; Nurse Practitioner Family; Physician Assistant; ADMIT Hospitalist; ATTEND Hospitalist
DX: J93.11 Primary spontaneous pneumothorax (principal); J96.01 Acute respiratory failure with hypoxia; N17.9 Acute kidney failure, unspecified; E87.1 Hypo-osmolality and hyponatremia; E78.5 Hyperlipidemia, unspecified; I10 Essential (primary) hypertension; E55.9 Vitamin D deficiency, unspecified; R63.4 Abnormal weight loss; M54.32 Sciatica, left side; M54.16 Radiculopathy, lumbar region; E11.42 Type 2 diabetes mellitus with diabetic polyneuropathy; M17.0 Bilateral primary osteoarthritis of knee; K59.00 Constipation, unspecified; Z20.822 Contact with and (suspected) exposure to COVID-19; I48.91 Unspecified atrial fibrillation; J98.2 Interstitial emphysema; Y92.89 Other specified places as the place of occurrence of the external cause; Z87.891 Personal history of nicotine dependence; Z68.32 Body mass index [BMI] 32.0-32.9, adult; Z72.89 Other problems related to lifestyle; X58.XXXA Exposure to other specified factors, initial encounter; Y93.89 Activity, other specified; Y99.8 Other external cause status
CPT/HCPCS: 10078; 10081; 10203; 50010; 50101; 50386; 50417; 50455; 50497; 50739; 50740; 52265; 52266; 54118; 56462; 56524; 56526; 56528; 62110; 62900; 70005

== ENCOUNTER 2020-11-27 13:18 | Inpatient (IN) | payer OTHER ==
[~2020-11-27] VITALS: Ht 152.4 cm; Wt 98.2 kg
--- NOTE | ~2020-11-27 | PLAN ---
[facility] [address] [address] REHAB UNIT PLAN OF CARE Name: CLEVE GRANGER Room #: 516-1 ADM IN M.R.#: [id number] Admission: 11/27/20 Attend Phys: Oni Krishnan MD Discharge: Date of : 47 Report #: [id number] THIS REPORT FOR: cc: DORI DOWLING Physician not on staff Oni Krishnan MD ~ DATE OF SERVICE: 11/30/2020 PROGRESS NOTE/OVERALL PLAN OF CARE SUBJECTIVE: The patient is seen back today in followup. He was pleasant, in no distress. Temperature 36.6, pulse 68, respirations 20, blood pressure 101/50. No focal calf swelling. He is motivated for his therapies. Transfers are contact guard. Once up, he is ambulating a longer distance, now up to 170 feet contact guard with a front-wheeled walker. In occupational therapy, lower body dressing is moderate assistance. Upper body dressing is supervision. His endurance is gradually improving. He notes that his low back and lower extremity pain complaints are improved as well. ASSESSMENT: 1. Sciatica with lumbar radiculopathy with pain complaints, improved. 2. Spontaneous pneumothorax, status post chest tube, status post VATS on 11/13/2020. 3. Acute respiratory failure. 4. Atrial fibrillation with rapid ventricular response. 5. Peripheral neuropathy. 6. Electrolyte abnormalities. 7. History of tobacco abuse. 8. Hypertension. 9. Hyperlipidemia. 10. Degenerative arthritis of the knees. 11. Lichen planus. PLAN: The overall plan of care is based on the preadmission screen, post-admission physician evaluation and information garnered from therapy assessments. 1. Estimated length of stay should be hopefully fairly short, may be later this week, 4-7 days I would say. 2. Medical prognosis is reasonably good. 3. Anticipated interventions include the interdisciplinary acute inpatient rehabilitation program. 4. Anticipated functional outcomes would be for the patient to become modified independent at least at the walker level, so that he can return back to the home setting. 5. Discharge destination would be back home with . He does have a split [facility] [address] [place] [address] REHAB UNIT PLAN OF CARE Name: CLEVE GRANGER Room #: 516-1 ADM IN ..#: [id number] Admission: 11/27/20 Attend Phys: Oni Krishnan MD Discharge: Date of : 47 Report #: [id number] level house with a lot of steps, which is a barrier. 6. Expected therapy by discipline includes PT and OT 1-1/2 hours per day each 5 days a week throughout the duration of the acute inpatient rehabilitation stay. 7. The patient will continue to have consultant in ergonomics and safety physicians involved post his thoracic procedure. The patient's prognosis for significant practical improvement within a reasonable period of time appears good. Given the patient's complex medical condition and risk of further medical complication, rehabilitation services could not be safely provided at a lower level of care such as a custodial facility. By: [id number] Oni Krishnan MD /nt
--- NOTE | ~2020-11-27 | H ---
[facility] [place] [address] [address] HISTORY AND PHYSICAL Name: CLEVE GRANGER Room #: 516-1 ADM IN M.R.#: [id number] Admission: 11/27/20 Attend Phys: Oni Krishnan MD Discharge: Date of : 47 Report #: [id number] THIS REPORT FOR: cc: DORI DOWLING Physician not on staff Oni Krishnan MD ~ DATE OF SERVICE: 11/27/2020 HISTORY AND PHYSICAL ADDENDUM HISTORY OF PRESENT ILLNESS: The patient is a 75-year-old male presented with shortness of breath and found to have a spontaneous pneumothorax. Chest tube was placed. Pulmonary and the hospitalist and Cardiology were all involved and he had acute respiratory failure. He continued to have problems with a persistent air leak on 11/23/2020 he underwent bronchoscopy with VATS by Dr. Calhoun. He then went into atrial fibrillation with rapid ventricular response requiring a Cardizem drip. He is being monitored regarding hyponatremia, hypokalemia and acute renal insufficiency. The patient also has a history of sciatica with left lower extremity weakness and was undergoing outpatient physical therapy prior to admission. He had significant decline with his functional gait and mobility with the lower extremity weakness and was undergoing the outpatient physical therapy. He has the lumbar radiculopathy further complicated by medical complexity with generalized debilitation and has now been admitted for acute inpatient rehabilitation. He also has a premorbid peripheral neuropathy with numbness in bilateral feet. Prior medical history as documented please the allergies, social history, and habits. MEDICATIONS: Per JAN. REVIEW OF SYSTEMS: See the 14-point systems. No chest pain, shortness of breath or abdominal discomfort. He has bilateral hip pain stops of the upper thighs. He has distal lower extremity numbness consistent with his peripheral neuropathy. He did not utilize an assistive device premorbidly. PHYSICAL EXAMINATION: GENERAL: The patient was seen on 11/27/2020. He was in no distress. His was in the room. Alert and pleasant. VITAL SIGNS: Temperature 36.4, pulse 78, respirations 20, blood pressure 101/55. HEENT: Appeared to be benign. NECK: No lymphadenopathy. [facility] [address] [place] [address] HISTORY AND PHYSICAL Name: CLEVE GRANGER Room #: 516-1 ADM IN M.R.#: [id number] Admission: 11/27/20 Attend Phys: Oni Krishnan MD Discharge: Date of : 47 Report #: [id number] CHEST: Sounded clear to auscultation. CARDIOVASCULAR: Regular rate and rhythm. ABDOMEN: Bowel sounds positive, nontender. GENITOURINARY AND RECTAL: Deferred. I checked out his chest tube site and he has a dressing in place, which appeared dry. There is a taped over the area. NEUROLOGICAL: He has functional range of motion of both upper extremities. Strength is grade 4/5. Lower extremities appears to have a left foot drop and dorsiflexion basically to neutral. He has decreased sensation, proprioception distal left lower extremity as well as distal right lower extremity. There is 1-2+ distal lower extremity edema. No focal calf swelling. Negative Homans. Proximal strength is probably a grade 3+ to 4-/5. DTRs were trace upper extremities 1. Lower extremities, no clonus. He has been min assist to come to stand and has ambulated a short distance with a front-wheeled walker. ASSESSMENT: A 75-year-old white male with the following problem list: 1. Sciatica with lumbar radiculopathy. 2. He had a left ankle dorsiflexor weakness/foot drop. 3. Premorbid peripheral neuropathy appears idiopathic. No noted history of diabetes. 4. Medical complexity with generalized debilitation. 5. Spontaneous pneumothorax, status post chest tube and subsequent video-assisted thoracoscopic surgery on 11/23/2020. 6. Prior Acute respiratory failure. 7. Prior atrial fibrillation with rapid ventricular rate, now rate controlled. 8. History of electrolyte abnormalities. 9. History of tobacco abuse. 10. Hypertension. 11. Hyperlipidemia. 12. Degenerative arthritis of the knees. PLAN: The patient has been admitted for acute in-hospital inpatient rehabilitation. Please see the documentation as noted. As far as risk of complications, he has multiple medical comorbidities as noted above. Prognosis reasonably good with estimated length of stay probably at least 10 days. Potential barriers would include his multiple medical comorbidities and decreased functional status. The patient meets diagnostic criteria for an acute in-hospital inpatient rehabilitation stay. He meets the medical necessity criteria[place] [address] HISTORY AND PHYSICAL Name: CLEVE GRANGER Room #: 516-1 ADM IN M.R.#: [id number] Admission: 11/27/20 Attend Phys: Oni Krishnan MD Discharge: Date of : 47 Report #: [id number] legal nurse consultant physicians continue to follow. He does have the tolerance for therapies and has appropriate discharge goals back to the home setting. By: [id number] Oni Krishnan MD /amy
[~2020-11-27 13:18] MED LIST changes: +CARDIZEM CD120 MG PO; +CHLORTHALIDONE25 MG PO; +COZAAR 50 MG TA50 M1 PO; +COZAAR100 MG PO; +EZALLOR SPRINKLE5 MG PO; +GABAPENTIN 100100 MG PO; +HYDROCODON-ACE1 EAC7 PO; +METOPROLOL SUCC25 M1 PO; +PEPCID20 MG PO; +VITAMIN D21250 MC1 PO; +XARELTO20 MG PO
[2020-11-27 14:07] VITALS: BP 101/55
--- NOTE | 2020-11-27 16:20 | NUR ---
PATIENT ADMITTED TO ROOM AROUND 2PM WITH AT BEDSIDE. PT IS APPROPRIATE, AND ASKED GOOD QEUSTIONS. NOTED WOUND AT COCCYX, OPEN AND CLEANSED, TREATED WITH Z-GUARD UNTIL WE HAVE WOUND CARE ORDERS. WC CONSULT HAS BEEN PLACED. PT STATED THAT IT IS MUCH IMPROVED FROM WHEN SHE FIRST SAW IT. INCISIONS ARE COVERED BY SURGICAL DRESSINGS WHICH ARE INTACT. PT HAS BLE EDEMA, AND VERBALIZED THAT HE IS WILLING TO USE SCD'S AND JAKUB HOSE IF NEEDED. 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 THIS WAS EVALUATED BY ZAIRA SANCHEZ AND ORDERS RECEIVED FOR THIS MED TO BE USED WHILE HE IS IN THE HOSPITAL. MED WAS GIVEN TO PT'S RN ORESTES.
[2020-11-27 20:00] VITALS: BP 114/49
--- NOTE | 2020-11-28 01:07 | NUR ---
PT ALERT AND ORIENTED X 4. UP IN RECLINER ALL EVENING. TRANSFERRED TO BED AT HS WITH ASSIST X 1. DRESSINGS TO RIGHT SIDE C/D/I. PT HAS RASH ON BACK AND CHEST. PT STATES IT ITCHES A LITTLE BIT AND HE WOULD LET ME KNOW IF IT BECAME ANY WORSE. PT C/O PAIN IN HIS RIGHT SIDE. HYDROCODONE GIVEN AT HS. BED ALARM ON FOR SAFETY. PT APPEARS TO BE SLEEPING ON HOURLY ROUNDS.
[2020-11-28 06:17] LABS: HEMATOCRIT 34.9 % (42.0-52.0); HEMOGLOBIN 11.4 gm/dL (14.0-18.0); MCH 31.3 pg (26.0-34.0); MCHC 32.6 g/dL (28.0-37.0); MCV 95.9 fL (80.0-100.0); RBC 3.64 mil/uL (4.50-6.00); RDW 14.5 % (10.5-14.5); WBC 9.4 thou/uL (4.0-11.0)
[2020-11-28 06:59] LABS: CALCIUM 9.4 mg/dL (8.5-10.1); CREATININE 0.9 mg/dL (0.7-1.3); POTASSIUM 4.6 mmol/L (3.5-5.1)
[2020-11-28 07:40] VITALS: BP 121/70
--- NOTE | 2020-11-28 10:26 | NUR ---
ASSUMED CARE AT 0700. PATIENT IS ALERT AND ORIENTED X4. PATIENT GALEAS'S, TONG HOOKER ARE EQUAL. LUNGS ARE DEMINISHED. ABD IS SOFT WITH BSX4. PATIENT HAS RASH ON CHEST, BACK AND UNDER THE C.T. SITE DRESSING. PATIENT C/O RASH ITCHING. NIGHT NURSE OBTAINED ORDER FOR BENDADRYL FOR ITCHING AND ADMINISTERED IT. UP IN THE CHAIR FOR MEALS. PATIENT HAS L.E. EDEMA, AND IS ENCOURAGED TO ELEVATE HIS LEGS WHEN UP. C.T. SITE DRESSINGS ARE DRY AND INTACT, WITH A RASH UNDER THE RIGHT LOWER DRESSING. UP TO THE BATHROOM WITH ASSIST OF 1 STAFF,GAIT BELT AND WALKER TO VOID GUTIERREZ COLORED URINE. ABD IS SOFT WITH BSX4. FALL AND SAFETY PROTOCOLS IN PLACE. C/O PAIN IN HIS ANKLE AND C.T. SITES. MEDICATED WITH PRN PAIN MED. CONTINUES TO PROGRESS SLOWLY TOWARDS D/C GOALS. WILL CONTINUE TO MONITER.
[2020-11-28 19:40] VITALS: BP 94/55
--- NOTE | 2020-11-29 01:58 | NUR ---
UP IN CHAIR WITH LEGS UP UNTIL TEN PM. PAIN MED, BENADRYL, AND HYDROCORTISONE OINTMENT TO HELP MANAGE PAIN IN RIGHT CHEST WALL AND RASH SURROUNDING IT. BLOOD SUGAR 146 AT HS
[2020-11-29 05:36] LABS: GLYCOHEMOGLOBIN (HGB A1C) 6.1 % (4.8-5.6)
[2020-11-29 07:49] VITALS: BP 107/63
--- NOTE | 2020-11-29 17:48 | NUR ---
ASSUMED CARE OF PT AT 0720. PT IS A&OX4. IS ON ROOM AIR. IS STABLE. REPORTS MILD PAIN AT CHEST TUBE SITE THAT IS BEING MANAGED WITH ORAL PAIN MEDS & OTHER THERAPUETIC TECHNIQUES. 4 SITES BETH, NO DRAINAGE NOTED. PT HAS RASH TO TRUNK, BACK, & LEFT ANKLE. HAS BILAT LE EDEMA. PT KEEPING EVLEVATED. PT IS UP TO CHAIR, ALARM ON. CALL LIGHT WITHIN REACH. PT VOIDS PER URINAL. IS UP WITH 1 ASSIST, GB, WALKER. FALL PRECAUTIONS & HOURLY ROUNDING CONTINUED THIS SHIFT. LABS & VITALS REVIEWED. SPOUSE AT BEDSIDE. WILL CONTINUE TO MONITOR.
[2020-11-29 19:28] VITALS: BP 109/56
--- NOTE | 2020-11-30 01:09 | NUR ---
PT ALERT AND ORIENTED X 4. IN RECLINER DURING EVENING. TRANSFERRED TO BED AT HS WITH ASSIST X 1. VOIDING PER URINAL. RIGHT OLD CHEST TUBE SITES C/D/I. PT HAS RASH ON CHEST, BACK AND LEFT ANKLE. HYDROCORTISONE CREAM APPLIED AT HS. BED ALARM ON FOR SAFETY. PT APPEARS TO BE SLEEPING ON HOURLY ROUNDS.
[2020-11-30 07:30] VITALS: BP 101/50
--- NOTE | 2020-11-30 10:43 | NUR ---
WOUND CONSULT; THE PATIENT WAS IN THE CHAIR UPON ASSESSMENT. HE WAS ABLE TO STAND. THE PATIENT REPORTS HIS CONDITION HAS IMPROVED SINCE ADMIT. HE NOW IS ABLE TO TURN HIMSELF AND STAND. A SMALL STAGE 2 PRESSURE INJURY WAS NOTED TO THE COCCYX MEANSURES 0.5 X 0.5 X 0.2 NO S/S OF INFECTION. I SPENT 15 MINUTES EXPLAINING PRESSURE PREVENTION, OFFLOADING TECHNIQUES WELL BUT NOT LIMITED TO GENERAL WOUND CARE ETC. THE PATIENT IS VERY MOTIVATED, ENGAGED AND VERBALIZED HIS UNDERSTANDING. DISCUSSED WITH RN.
--- NOTE | 2020-11-30 12:46 | NUR ---
REHAB ASSESSMENT: PT ADMITTED TO ARU W/DX OF LUMBAR RAD W/LE WEAKNESS. PT LIVES HOME W/SPOUSE. 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 PT STATED HE DOES NOT LIVE SEDENTARY LIFESTYLE AND IS ACTIVE. PT DRIVES AND IS INDEPENDENT W/ADLS. PT HAS 0 DMES. DENIES HX W/SNF OR HH. PT HAS HAD OUTPT THERAPY FOR BACK IN OCT 2020 AND FOR SHOULDER ABOUT 5/6 Y/A AT [facility]. PT AND SHARE MANAGEMENT RESPONSIBILITIES OF FINANCES AND PT MANAGED HIS OWN MEDICATION. CM TO CONT TO FOLLOW.
--- NOTE | 2020-11-30 12:52 | NUR ---
Nutrition: pt admitted with lumbar radiculopathy, S/P pneumothorax with persistant air leak and need for bronch/VATS on 11/23. Wounds indicated which are small stage 2 pressure ulcer on coccyx and incision from chest tube. Pt eating 100% of meals and supplements. Will decrease ensure to once daily. Pt reports intentional weight loss of 25-30# over the past year by way of cutting down on sweets/bread. Stable weights in hospital. Vitamin D deficiency-supplement started. Also on MVI. Pt orders meals as desired and eats 100% HBV protein foods for wound healing. Consider low nutrition risk.
[2020-11-30 19:50] VITALS: BP 107/47
--- NOTE | 2020-11-30 20:27 | NUR ---
Assumed pt CARE at 0700. pt was in his room resting. pt was alert and oriented x4. pt took his medication whole. pt was calm and co-operative with care. Pt called when he needs assistance. wound care to his coccyx. rinseD with saline water, applied zguard to coccyx.HYDROCORTISONE WAS APPLIED TO CHEST, BACK AND LEFT ANKLE. THERE NO C/O OF PAIN AND DISTRESS AT THIS TIME.PT VISITED. WILL CONTINUE TO MONITOR.
--- NOTE | 2020-12-01 02:30 | NUR ---
TURNING SELF TO SIDE SUGGESTED BY WOUND CARE NURSE. BLOOD SUGAR = 142 AT HS. NOW USING HC LOTION TO CHEST, RIGHT CHEST, AND LEFT ANKLE. APPRECIATES BENADRYL, NOT DESIRING PAIN PILL AT THIS TIME. LEGS ELEVATED
[2020-12-01 07:15] VITALS: BP 110/57
--- NOTE | 2020-12-01 10:01 | NUR ---
ASSUMED CARE AT 0700. PATIENT IS ALERT AND ORIENTED X4. PATIENT GALEAS'S, MANAGER INTERNSHIP ARE EQUAL. LUNGS ARE CLEAR. ABD IS SOFT WITH BSX4. UP TO THE BATHROOM WITH ASSIST OF 1 STAFF AND GAIT BELT TO HAVE BM AND VOID GUTIERREZ COLORED URINE. UP IN THE CHAIR. FALL AND SAFETY PROTOCOLS IN PLACE. C/O PAIN AT CT INCISION SITE AND BACK PAIN. MEDICATED WITH PRN PAIN MED. PATIENT HAS RASH ON CHEST, BACK, LEFT ANKLE. WILL CONTINUE TO MONITER.
[2020-12-01 16:54] VITALS: BP 110/57
--- NOTE | 2020-12-01 16:56 | NUR ---
Team conference held today. DC anticipated Monday12/04/20 home with spouse and home health RN,PT, and OT. Pt will need a FWW. DC recommendations discussed with the pt and his spouse at bedside this afternoon. Spouse will be here mid morning on Monday and can train with therapy at that time. They deny agency preference or listing for hh referral. Dc planner/scheduler to fax referral to [facility]. Provider Plus liason notified of FWW and script left for the liason to issue prior to pt dc Monday. CAre team updated. Pt is doing well and excited to finally be going home.
[2020-12-01 19:55] VITALS: BP 88/51
--- NOTE | 2020-12-02 01:26 | NUR ---
PT ALERT AND ORIENTED X 4. RASH TO LEFT ANKLE, CHEST AND BACK. HYDROCORTISONE CREAM APPLIED AT HS. RIGHT SIDE OLD CHEST TUBE SITES HEALING. PT C/O PAIN IN HIS BACK. HYRDOCODONE GIVEN AT HS. BENADRYL ALSO GIVEN AT HS FOR ITCHING. BED ALARM ON FOR SAFETY. PT APPEARS TO BE SLEEPING ON HOURLY ROUNDS.
[2020-12-02 07:20] VITALS: BP 112/64
--- NOTE | 2020-12-02 14:46 | NUR ---
WOUND F/U; THE COCCYZ WOUND IS IMPROVING. THE QUALITY OF TISSUE IN THE WOUND BED IS IMPROVING. THERE IS NO S/S OF INFECTION. THE PATIENT IS USING PILLOW, AMBULATING AND COOPERATING WITH STAFF TO IMPROVE HIS OVERALL HEALTH. RECOMMENDATIONS; NO CHANGES NEEDED. DISCUSSED WITH RN.
--- NOTE | 2020-12-02 15:05 | NUR ---
ASSUMED CARE AT 0700. PATIENT IS ALERT AND ORIENTED X4. PATIENT GALEAS'S, VIRTUALIZATION CONSULTANT ARE EQUAL. LUNGS ARE CLEAR. ABD IS SOFT WITH BSX4. UP TO THE BATHROOM INDEPENDENTLY WITH WALKER TO VOID GUTIERREZ COLORED URINE. RASH TO HIS BACK, CHEST AND LEFT ANKLES IMPROVING. HYDROCORTIZONE LOTION APPLIED. UP IN THE CHAIR FOR MEALS. FALL AND SAFETY PROTOCOLS IN PLACE. C/O PAIN IN HIS ANKLES AND BACK. MEDICATED WITH PRN PAIN MED. CONTINUES TO PROGRESS TOWARDS D/C GOALS.
--- NOTE | 2020-12-02 17:41 | NUR ---
PT DISCHARGING TODAY TO HOME WITH [facility] FAXED DC ORDERS/SUMMARY SPOKE WITH GOLDIE IN INTAKE SHE RECEIVED ORDERS AND WILL ARRANGE VISITS WITH PT.
[2020-12-02 20:51] VITALS: BP 117/58
--- NOTE | 2020-12-03 02:34 | NUR ---
ASSUMED CARE APPROX 0 EVENING 12/02. PT ALERT AND ORIENTED X4, PLEASANT AND COOPERATIVE. PT MODIFIED INDEP IN ROOM WITH WALKER. PT VOIDING PER URINAL. PT WITH RASH TO BACK AND CREAM APPLIED. PT STATED HE WAS LOOKING FORWARD TO BEING DISCHARGED MONDAY. PT APPEARS TO BE SLEEPING SOUNDLY. CALL LIGHT IN REACH. WILL CONTINUE TO MONITOR.
[2020-12-03 05:38] LABS: MCH 31.1 pg (26.0-34.0); MCHC 33.4 g/dL (28.0-37.0); MCV 93.1 fL (80.0-100.0); PLATELET COUNT 263 thou/uL (150-400); RBC 3.54 mil/uL (4.50-6.00); WBC 4.9 thou/uL (4.0-11.0)
[2020-12-03 06:07] LABS: CALCIUM 8.9 mg/dL (8.5-10.1); CREATININE 1.1 mg/dL (0.7-1.3); MAGNESIUM 1.9 mg/dL (1.8-2.4); POTASSIUM 4.2 mmol/L (3.5-5.1)
[2020-12-03 07:45] VITALS: BP 118/83
[2020-12-03 09:42] LABS: ABSOLUTE NEUTROPHILS 2.9 thou/uL (1.4-8.2)
--- NOTE | 2020-12-03 15:00 | NUR ---
ASSUMED CARE AT 0700. SLEPT FAIRLY WELL. REPORTED DISCOMFORT IN R SHOULDER AND RIBCAGE AREA. MEDICATED WITH HYDROCODONE AND TYLENOL THE SECOND TIME. PAIN RELIEF IMPROVED. HYDROCORTISONE CREAM APPLIED TO BACK FOR MACULAR RASH. APPETITE GOOD, HAD A BM TODAY. DIURESING ADEQUATELY, ON LASIX. PT HAS BOTH LEGS ELEVATED DUE TO EDEMA. PARTICIPATED IN THERAPY. PLAN FOR DC HOME TOMORROW PER PT. MOD I IN ROOM. CONT TO MONITOR.
[2020-12-03 20:47] VITALS: BP 111/70
--- NOTE | 2020-12-04 02:25 | NUR ---
TYLENOL RATHER THAN HYDROCODONE ADEQUATE FOR PAIN. APPRECIATES LOTION AND BENADRYL FOR RASH. ANTICIPATES GOING HOME TODAY. MODIFIED INDEPENDENT IN ROOM WITH WALKER. UP TO TOILET WITHOUT ASSIST.
[2020-12-04 07:51] VITALS: BP 113/66
[2020-12-04 08:24] VITALS: BP 113/66
[2020-12-04] MEDS ORDERED: METOPROLOL SUCC25 M1 PO ×2 (08:24→11:16)
[2020-12-04] MEDS ORDERED: HYDROCORTISONE120 M4 TOP ×2 (08:24→11:16)
[2020-12-04] MEDS ORDERED: FOLIC ACID1 MG PO ×2 (08:24→11:16)
[2020-12-04] MEDS ORDERED: VITAMIN B-12500 MCG PO ×2 (08:24→11:16)
[2020-12-04] MEDS ORDERED: MIRALAX17 GM PO ×2 (08:24→11:16)
[2020-12-04] MEDS ORDERED: CARDIZEM CD120 MG PO ×2 (08:24→11:16)
[2020-12-04] MEDS ORDERED: COLACE100 MG PO ×2 (08:24→11:16)
[2020-12-04] MEDS ORDERED: XARELTO20 MG PO ×2 (08:24→11:16)
[2020-12-04] MEDS ORDERED: PEPCID20 MG PO ×2 (08:24→11:16)
[2020-12-04] MEDS ORDERED: LIPITOR 20 MG T20 M1 PO (08:24)
[2020-12-04] MEDS ORDERED: GABAPENTIN 100100 MG PO ×2 (08:24→11:16)
[2020-12-04] MEDS ORDERED: VITAMIN D21250 MC1 PO ×2 (08:24→11:16)
[2020-12-04] MEDS ORDERED: LASIX 40 MG TAB40 M2 PO ×2 (08:24→11:16)
--- NOTE | 2020-12-04 11:30 | NUR ---
ASSUMED CARE AT 0700. ALERT AND ORIENTATED. PAIN IS STABLE WITH TYLENOL. LUNGS CLEAR. APPETITE GOOD, BOWEL SOUNDS PRESENT, HAD A BM YESTERDAY. BLE EDEMA WITH JAKUB HOSE AND ON LASIX. WEIGHT STABLE. RASH STABLE WITH HYDROCORTISIONE CREAM. CT SITES CLOSED WITH BANDAID. DC PLANNING INSTRUCTIONS DISCUSSED WITH SPOUSE AND PT. PT DC TO HOME WITH HH WITH WALKER. PT ABLE TO WALK FROM WC TO CAR INDEPENDENTLY. LEFT UNIT AT 1120.
--- NOTE | 2020-12-04 11:44 | NUR ---
PT DISCHARGING TODAY TO HOME WITH [facility] FAXED DC ORDERS/SUMMARY SPOKE WITH ALEJANDRO IN INTAKE THEY RECEIVED ORDERS AND WILL ARRANGE VISITS WITH PT.
== END 2020-12-04 11:20 | disposition home health service (06) | DRG 551 ==
PROVIDERS: Nurse Practitioner; Nurse Practitioner Family; ADMIT Physical Medicine & Rehabilitation; ATTEND Physical Medicine & Rehabilitation
DX: M54.16 Radiculopathy, lumbar region (principal); J96.00 Acute respiratory failure, unspecified whether with hypoxia or hypercapnia; I48.20 Chronic atrial fibrillation, unspecified; J93.83 Other pneumothorax; R53.81 Other malaise; I10 Essential (primary) hypertension; E78.5 Hyperlipidemia, unspecified; M17.0 Bilateral primary osteoarthritis of knee; G62.9 Polyneuropathy, unspecified; M54.30 Sciatica, unspecified side; M21.372 Foot drop, left foot; L43.9 Lichen planus, unspecified; R73.03 Prediabetes; L30.9 Dermatitis, unspecified; E53.8 Deficiency of other specified B group vitamins; T81.89XA Other complications of procedures, not elsewhere classified, initial encounter; Z87.891 Personal history of nicotine dependence; Z79.899 Other long term (current) drug therapy; Y84.8 Other medical procedures as the cause of abnormal reaction of the patient, or of later complication, without mention of misadventure at the time of the procedure; Y92.89 Other specified places as the place of occurrence of the external cause
CPT/HCPCS: 10112

== ENCOUNTER 2020-12-11 12:57 | Inpatient (IN) | payer OTHER ==
[~2020-12-11] VITALS: Ht 180.3 cm; Wt 112.5 kg
[~2020-12-11 12:57] MED LIST changes: +COLACE100 MG PO; +FOLIC ACID1 MG PO; +HYDROCORTISONE120 M4 TOP; +LASIX 40 MG TAB40 M2 PO; +LIPITOR 20 MG T20 M1 PO; +MIRALAX17 GM PO; +VITAMIN B-12500 MCG PO
[2020-12-11 13:01] VITALS: BP 83/44
[2020-12-11] MEDS ORDERED: ELIQUIS5 MG PO (13:09)
[2020-12-11 13:50] LABS: ABSOLUTE NEUTROPHILS 5.2 thou/uL (1.4-8.2); BASOPHILS 0.8 % (0.0-2.0); EOSINOPHILS 0.1 % (0.0-3.0); HEMOGLOBIN 12.3 gm/dL (14.0-18.0); LYMPHOCYTES 9.2 % (24.0-44.0); MCHC 33.4 g/dL (28.0-37.0); MCV 89.7 fL (80.0-100.0); MONOCYTES 3.4 % (1.0-8.0); POLYS 86.5 % (36.0-66.0); RBC 4.12 mil/uL (4.50-6.00); RDW 14.2 % (10.5-14.5)
[2020-12-11 14:03] LABS: BE(vivo) -6.9 mmol/L (-2 to +3); HCO3 15.1 mmol/L (22.0-26.0); PO2 71.5 mmHg (80.0-100.0); pH 7.448 (7.360-7.450); sO2 95.4 % (92.0-98.0)
[2020-12-11 14:05] LABS: PCO2 22.4 mmHg (35.0-45.0)
[2020-12-11 14:27] LABS: ANION GAP 12 mmol/L (7-16); BUN 29 mg/dL (7-18); CALCIUM 8.1 mg/dL (8.5-10.1); CHLORIDE 100 mmol/L (98-107); CO2 20 mmol/L (21-32); CREATININE 1.4 mg/dL (0.7-1.3); GLUCOSE 153 mg/dL (74-106); POTASSIUM 4.2 mmol/L (3.5-5.1); SODIUM 132 mmol/L (136-145)
[2020-12-11 14:37] LABS: ALBUMIN 2.6 g/dL (3.4-5.0); SGOT 50 U/L (15-37); SGPT 55 U/L (16-63); TOTAL BILIRUBIN 0.4 mg/dL (0.2-1.0); TOTAL PROTEIN 6.4 g/dL (6.4-8.2); TROPONIN-I <0.06 ng/mL (<0.06)
[2020-12-11 15:31] LABS: INR 1.1; PROTIME 10.8 Seconds (9.3-11.4)
--- NOTE | 2020-12-11 15:32 | EKG ---
[address] [address] ELECTROCARDIOGRAM REPORT Name: CLEVE GRANGER Room #: 170-4 ADM IN M.R.#: [id number] Admission: 12/11/20 Attend Phys: Bk Kuhn Discharge: Date of : 47 Report #: [id number] [facility] ED Test Date: 2020-12-11 Test Time: 14:25:41 Pat Name: CLEVE GRANGER Department: Room: 170 Gender: M Area Field Manager: don : 1945 Requested By: Jake Downs Order Number: [id number] MD: Jorden Jay Measurements Intervals [place] Rate: 78 P: NM: QRS: 77 QRSD: 90 T: 68 QT: 392 QTc: 447 Interpretive Statements Atrial fibrillation Compared to ECG 11/19/2020 06:30:19 No significant changes Electronically Signed On 12-11-2020 15:31:56 DYE REEL OPERATOR by Jorden Jay [email or web address] <ELECTRONICALLY SIGNED> By: Jorden Jay MD, [facility] 12/11/20 1531 1425 1425 Jorden Jay MD, FACC /EPI
[2020-12-11 15:36] LABS: PLATELET COUNT 137 thou/uL (150-400)
[2020-12-11 15:45] LABS: CHOLESTEROL 100 mg/dL (<200); HDL CHOLESTEROL 25 mg/dL (>40); LDL CHOLESTEROL 55 mg/dL (<100); TRIGLYCERIDE 103 mg/dL (<150); VLDL 21 mg/dL (<40)
[2020-12-11 16:17] VITALS: BP 83/44
[2020-12-11 16:46] VITALS: BP 116/92
[2020-12-11 19:55] VITALS: BP 110/68
[2020-12-12 02:24] LABS: HEMATOCRIT 36.2 % (42.0-52.0); MCH 29.7 pg (26.0-34.0); MCHC 33.2 g/dL (28.0-37.0); MCV 89.7 fL (80.0-100.0); RBC 4.04 mil/uL (4.50-6.00); RDW 14.2 % (10.5-14.5); WBC 4.1 thou/uL (4.0-11.0)
[2020-12-12 02:34] LABS: ALBUMIN 2.2 g/dL (3.4-5.0); CALCIUM 7.7 mg/dL (8.5-10.1); DIRECT BILIRUBIN 0.1 mg/dL (<0.1-0.2); PHOSPHORUS 4.2 mg/dL (2.6-4.7); POTASSIUM 3.5 mmol/L (3.5-5.1); TOTAL BILIRUBIN 0.3 mg/dL (0.2-1.0); TOTAL PROTEIN 6.3 g/dL (6.4-8.2)
[2020-12-12 04:43] VITALS: BP 118/60; BP 127/80
[2020-12-12 07:25] VITALS: BP 117/57
[2020-12-12 11:04] VITALS: BP 114/74
[2020-12-12 15:17] VITALS: BP 103/65
[2020-12-12 19:40] VITALS: BP 128/66
[2020-12-13 04:04] VITALS: BP 135/67
[2020-12-13 07:32] VITALS: BP 104/56
[2020-12-13 10:58] LABS: HEMATOCRIT 37.3 % (42.0-52.0); HEMOGLOBIN 12.2 gm/dL (14.0-18.0); MCH 29.6 pg (26.0-34.0); MCHC 32.7 g/dL (28.0-37.0); MCV 90.6 fL (80.0-100.0); RBC 4.12 mil/uL (4.50-6.00); RDW 14.3 % (10.5-14.5)
[2020-12-13 11:01] LABS: WBC 15.2 thou/uL (4.0-11.0)
[2020-12-13 11:08] LABS: ALBUMIN 2.5 g/dL (3.4-5.0); CREATININE 0.9 mg/dL (0.7-1.3); DIRECT BILIRUBIN 0.1 mg/dL (<0.1-0.2); PHOSPHORUS 3.3 mg/dL (2.6-4.7); POTASSIUM 3.8 mmol/L (3.5-5.1); TOTAL BILIRUBIN 0.4 mg/dL (0.2-1.0); TOTAL PROTEIN 5.8 g/dL (6.4-8.2)
[2020-12-13 12:21] VITALS: BP 145/72
[2020-12-13 16:10] VITALS: BP 101/58
[2020-12-13 17:23] VITALS: BP 120/62
[2020-12-13 19:38] VITALS: BP 121/59
[2020-12-14 04:45] VITALS: BP 116/72
[2020-12-14 07:30] LABS: HEMATOCRIT 34.4 % (42.0-52.0); HEMOGLOBIN 11.4 gm/dL (14.0-18.0); MCH 29.9 pg (26.0-34.0); MCHC 33.3 g/dL (28.0-37.0); MCV 89.9 fL (80.0-100.0); RBC 3.83 mil/uL (4.50-6.00); RDW 14.6 % (10.5-14.5)
[2020-12-14 07:56] LABS: ALBUMIN 2.5 g/dL (3.4-5.0); CALCIUM 8.4 mg/dL (8.5-10.1); DIRECT BILIRUBIN 0.2 mg/dL (<0.1-0.2); PHOSPHORUS 3.8 mg/dL (2.6-4.7); POTASSIUM 3.7 mmol/L (3.5-5.1); TOTAL BILIRUBIN 0.6 mg/dL (0.2-1.0); TOTAL PROTEIN 6.3 g/dL (6.4-8.2)
[2020-12-14 07:58] VITALS: BP 102/64
[2020-12-14 09:00] VITALS: BP 125/68
[2020-12-14 11:33] VITALS: BP 107/63
[2020-12-14 15:11] VITALS: BP 116/67
[2020-12-14 19:37] VITALS: BP 125/68
[2020-12-15 01:52] VITALS: BP 125/68
[2020-12-15 05:14] VITALS: BP 102/66
[2020-12-15 06:42] LABS: HEMATOCRIT 35.3 % (42.0-52.0); HEMOGLOBIN 11.6 gm/dL (14.0-18.0); MCH 29.7 pg (26.0-34.0); MCHC 32.9 g/dL (28.0-37.0); MCV 90.4 fL (80.0-100.0); RBC 3.9 mil/uL (4.50-6.00); RDW 14.4 % (10.5-14.5); WBC 13.2 thou/uL (4.0-11.0)
[2020-12-15 06:55] LABS: ALBUMIN 2.5 g/dL (3.4-5.0); CALCIUM 8.5 mg/dL (8.5-10.1); CREATININE 1.1 mg/dL (0.7-1.3); DIRECT BILIRUBIN 0.2 mg/dL (<0.1-0.2); PHOSPHORUS 3.8 mg/dL (2.5-4.9); TOTAL BILIRUBIN 0.5 mg/dL (0.2-1.0); TOTAL PROTEIN 6.1 g/dL (6.4-8.2)
[2020-12-15 08:41] VITALS: BP 124/76
[2020-12-15 12:15] VITALS: BP 124/69
[2020-12-15 15:20] VITALS: BP 131/72
[2020-12-15 19:33] VITALS: BP 132/78
[2020-12-15 23:40] LABS: BE(vivo) -9.1 mmol/L (-2 to +3); HCO3 15.2 mmol/L (22.0-26.0); PCO2 28.7 mmHg (35.0-45.0); PO2 59.8 mmHg (80.0-100.0); pH 7.342 (7.360-7.450)
[2020-12-16] VITALS (48 sets, daily range): BP systolic 73–148; BP diastolic 43–85
[2020-12-16 00:18] LABS: HEMOGLOBIN 12.2 gm/dL (14.0-18.0); MCH 29.5 pg (26.0-34.0); MCHC 32.1 g/dL (28.0-37.0); MCV 91.7 fL (80.0-100.0); RBC 4.14 mil/uL (4.50-6.00); RDW 14.8 % (10.5-14.5); WBC 19.1 thou/uL (4.0-11.0)
[2020-12-16 00:33] LABS: ALBUMIN 2.7 g/dL (3.4-5.0); CALCIUM 8.3 mg/dL (8.5-10.1); CREATININE 1.2 mg/dL (0.7-1.3); DIRECT BILIRUBIN 0.3 mg/dL (<0.1-0.2); PHOSPHORUS 4.7 mg/dL (2.6-4.7); POTASSIUM 3.9 mmol/L (3.5-5.1); TOTAL BILIRUBIN 0.8 mg/dL (0.2-1.0); TOTAL PROTEIN 6.3 g/dL (6.4-8.2)
[2020-12-16 08:39] LABS: BE(vivo) -7.7 mmol/L (-2 to +3); HCO3 19.4 mmol/L (22.0-26.0); PCO2 45.6 mmHg (35.0-45.0); PO2 247.7 mmHg (80.0-100.0); sO2 99.4 % (92.0-98.0)
[2020-12-16 08:40] LABS: pH 7.246 (7.360-7.450)
[2020-12-17] VITALS (49 sets, daily range): BP systolic 92–134; BP diastolic 47–73
[2020-12-17 12:19] LABS: BE(vivo) -3.8 mmol/L (-2 to +3); HCO3 21.5 mmol/L (22.0-26.0); PCO2 40.1 mmHg (35.0-45.0); PO2 64.2 mmHg (80.0-100.0); pH 7.348 (7.360-7.450); sO2 91.6 % (92.0-98.0)
[2020-12-17 21:27] LABS: CALCIUM 7.3 mg/dL (8.5-10.1); CREATININE 1.2 mg/dL (0.7-1.3); POTASSIUM 3.8 mmol/L (3.5-5.1)
[2020-12-18] VITALS (77 sets, daily range): BP systolic 91–150; BP diastolic 44–79
[2020-12-18 10:49] LABS: HEMATOCRIT 28.2 % (42.0-52.0); MCH 30.5 pg (26.0-34.0); MCHC 33.1 g/dL (28.0-37.0); MCV 92.1 fL (80.0-100.0); RBC 3.06 mil/uL (4.50-6.00); RDW 14.9 % (10.5-14.5); WBC 9.5 thou/uL (4.0-11.0)
[2020-12-18 10:52] LABS: HEMOGLOBIN 9.3 gm/dL (14.0-18.0)
[2020-12-19] VITALS (44 sets, daily range): BP systolic 103–145; BP diastolic 47–86
[2020-12-19 05:07] LABS: HEMATOCRIT 28.5 % (42.0-52.0); HEMOGLOBIN 9.2 gm/dL (14.0-18.0); MCH 29.6 pg (26.0-34.0); MCHC 32.1 g/dL (28.0-37.0); MCV 92.3 fL (80.0-100.0); RBC 3.09 mil/uL (4.50-6.00); RDW 15.1 % (10.5-14.5); WBC 12.6 thou/uL (4.0-11.0)
[2020-12-19 05:11] LABS: CALCIUM 7.4 mg/dL (8.5-10.1); CREATININE 1.1 mg/dL (0.7-1.3); POTASSIUM 4.5 mmol/L (3.5-5.1)
[2020-12-19 05:24] LABS: DIRECT BILIRUBIN 0.2 mg/dL (<0.1-0.2); TOTAL BILIRUBIN 0.3 mg/dL (0.2-1.0); TOTAL PROTEIN 5.3 g/dL (6.4-8.2)
[2020-12-20] VITALS (24 sets, daily range): BP systolic 98–145; BP diastolic 42–85
[2020-12-20 07:11] LABS: HEMATOCRIT 30.2 % (42.0-52.0); HEMOGLOBIN 9.6 gm/dL (14.0-18.0); MCH 29.6 pg (26.0-34.0); MCHC 31.9 g/dL (28.0-37.0); MCV 92.9 fL (80.0-100.0); RBC 3.25 mil/uL (4.50-6.00); RDW 15.2 % (10.5-14.5); WBC 12.9 thou/uL (4.0-11.0)
[2020-12-20 07:56] LABS: ALBUMIN 1.8 g/dL (3.4-5.0); CALCIUM 7.6 mg/dL (8.5-10.1); CREATININE 0.9 mg/dL (0.7-1.3); DIRECT BILIRUBIN 0.2 mg/dL (<0.1-0.2); PHOSPHORUS 3.1 mg/dL (2.5-4.9); POTASSIUM 4.8 mmol/L (3.5-5.1); TOTAL BILIRUBIN 0.4 mg/dL (0.2-1.0); TOTAL PROTEIN 5.3 g/dL (6.4-8.2)
[2020-12-20 11:16] LABS: BE(vivo) -4.7 mmol/L (-2 to +3); HCO3 21.6 mmol/L (22.0-26.0); PCO2 45.1 mmHg (35.0-45.0); PO2 140.6 mmHg (80.0-100.0); pH 7.298 (7.360-7.450); sO2 98.5 % (92.0-98.0)
[2020-12-21] VITALS (24 sets, daily range): BP systolic 113–153; BP diastolic 47–85
[2020-12-21 05:48] LABS: HEMATOCRIT 29.2 % (42.0-52.0); HEMOGLOBIN 9.4 gm/dL (14.0-18.0); MCH 29.8 pg (26.0-34.0); MCHC 32.3 g/dL (28.0-37.0); MCV 92.1 fL (80.0-100.0); RBC 3.17 mil/uL (4.50-6.00); RDW 14.7 % (10.5-14.5); WBC 14.6 thou/uL (4.0-11.0)
[2020-12-21 06:05] LABS: CALCIUM 7.5 mg/dL (8.5-10.1); CREATININE 0.9 mg/dL (0.7-1.3); POTASSIUM 4.9 mmol/L (3.5-5.1)
[2020-12-21 07:53] LABS: BE(vivo) -3.7 mmol/L (-2 to +3); PCO2 36.6 mmHg (35.0-45.0); PO2 74.3 mmHg (80.0-100.0); pH 7.377 (7.360-7.450); sO2 94.8 % (92.0-98.0)
[2020-12-22] VITALS (16 sets, daily range): BP systolic 117–159; BP diastolic 51–91
[2020-12-22 05:34] LABS: BE(vivo) -4.6 mmol/L (-2 to +3); HCO3 20.8 mmol/L (22.0-26.0); PCO2 39.3 mmHg (35.0-45.0); PO2 73.7 mmHg (80.0-100.0); pH 7.341 (7.360-7.450); sO2 94.1 % (92.0-98.0)
[2020-12-22 05:59] LABS: HEMATOCRIT 28.1 % (42.0-52.0); HEMOGLOBIN 9.1 gm/dL (14.0-18.0); MCH 29.7 pg (26.0-34.0); MCHC 32.3 g/dL (28.0-37.0); MCV 91.8 fL (80.0-100.0); RBC 3.06 mil/uL (4.50-6.00); RDW 15.2 % (10.5-14.5); WBC 18.9 thou/uL (4.0-11.0)
[2020-12-22 06:20] LABS: CALCIUM 7.8 mg/dL (8.5-10.1); CREATININE 0.9 mg/dL (0.7-1.3); POTASSIUM 4.7 mmol/L (3.5-5.1)
--- NOTE | 2020-12-22 15:16 | HC ---
[facility] [place] [address] CONSULTATION Name: CLEVE GRANGER Room #: 244-P ADM IN M.R.#: [id number] Admission: 12/11/20 Attend Phys: Bk Kuhn Discharge: Date of : 47 Report #: [id number] THIS REPORT FOR: cc: DORI DOWLING Physician not on staff Caleb Calhoun MD ~ DATE OF SERVICE: 12/14/2020 We were asked by Dr. Kuhn to see the patient. HISTORY OF PRESENT ILLNESS: The patient is a 75-year-old admitted 12/11/2020 with shortness of breath. The patient is known to me from previous video-assisted thoracoscopy. The patient had a persistent air leak after spontaneous pneumothorax. This surgery was approximately 11/23/2020. The patient had stapling of blebs and chemical pleurodesis and resolved the air leak and had done generally well at home. He was seen in the office on 12/09/2020 and complained of some shortness of breath, but this apparently got worse and the patient came to the Emergency Department on the and was diagnosed with COVID and respiratory failure with hypoxemia. PAST MEDICAL HISTORY: Significant for hypertension, arthritis, atrial fibrillation, remote tobacco use. ALLERGIES: None known. MEDICATIONS AT HOME: Losartan, atorvastatin, metoprolol, diltiazem, gabapentin, famotidine, vitamins. PREVIOUS SURGERY: As mentioned, the video-assisted thoracoscopy. SOCIAL HISTORY: The patient is . He is retired. Remote smoking history. REVIEW OF SYSTEMS: I agree with the review of systems as dictated in the Emergency Department. PHYSICAL EXAMINATION: VITAL SIGNS: Temperature 36.3, heart rate 88, respiratory rate 22, blood pressure 116/67. GENERAL: The patient is lying in bed with high flow oxygen in place. No obvious secretions slight tachypnea. No significant accessory muscle use however. HEENT: No scleral icterus, no arcus. NECK: No mass, no bruit. CHEST: Clear, somewhat distant. [facility] [address] [place] [address] CONSULTATION Name: CLEVE GRANGER Room #: 244-P [facility] IN M.R.#: [id number] Admission: 12/11/20 Attend Phys: Bk Kuhn Discharge: Date of : 47 Report #: [id number] HEART: Rhythm is atrial fibrillation. ABDOMEN: Slightly protuberant. EXTREMITIES: No significant clubbing, cyanosis or edema. Exam somewhat truncated related to active COVID. We note that chest x-ray shows no evidence of pneumothorax. CT scan was done on admission, shows emphysematous changes and some ground glass opacity in both lungs consistent with COVID pneumonia. No evidence of pulmonary embolism. ASSESSMENT: The patient is status post video-assisted thoracoscopy, no evidence of recurrent pneumothorax. PLAN: We have no specific contribution at this point, happy to see that patient is convalescing well as far as the wound care issues are concerned, but he clearly needs attention related to COVID and respiratory dysfunction. Thank you for the consult. <ELECTRONICALLY SIGNED> By: Caleb Calhoun MD 12/22/20 1516 [id number] Caleb Calhoun MD /nt
[2020-12-23] VITALS (22 sets, daily range): BP systolic 124–147; BP diastolic 47–66
[2020-12-23 06:00] LABS: HEMATOCRIT 25.5 % (42.0-52.0); HEMOGLOBIN 8.1 gm/dL (14.0-18.0); MCH 29.5 pg (26.0-34.0); MCHC 31.7 g/dL (28.0-37.0); MCV 92.8 fL (80.0-100.0); RBC 2.75 mil/uL (4.50-6.00); RDW 15.6 % (10.5-14.5); WBC 14.3 thou/uL (4.0-11.0)
[2020-12-23 06:32] LABS: CALCIUM 7.6 mg/dL (8.5-10.1); POTASSIUM 5.6 mmol/L (3.5-5.1)
[2020-12-23 10:20] LABS: % SATURATION 25 % (20-39); IRON 29 ug/dL (65-175); TIBC 117 ug/dL (250-450)
[2020-12-23 10:37] LABS: APTT 28.5 Seconds (24.5-32.8); D-DIMER 4.48 ug/mLFEU (0.19-0.50); PROTIME 10.6 Seconds (9.3-11.4)
[2020-12-24] VITALS (33 sets, daily range): BP systolic 74–155; BP diastolic 31–74
[2020-12-24 06:05] LABS: HEMOGLOBIN 8.7 gm/dL (14.0-18.0); MCH 30.1 pg (26.0-34.0)
[2020-12-24 06:06] LABS: HEMATOCRIT 27.2 % (42.0-52.0); MCHC 32.1 g/dL (28.0-37.0); MCV 93.6 fL (80.0-100.0); RBC 2.9 mil/uL (4.50-6.00); RDW 15.5 % (10.5-14.5); WBC 8.9 thou/uL (4.0-11.0)
[2020-12-24 06:15] LABS: MAGNESIUM 2.7 mg/dL (1.8-2.4); POTASSIUM 5.2 mmol/L (3.5-5.1)
[2020-12-24 09:55] LABS: BE(vivo) -6.1 mmol/L (-2 to +3); PCO2 57.9 mmHg (35.0-45.0); PO2 58.8 mmHg (80.0-100.0); sO2 83.8 % (92.0-98.0)
[2020-12-24 09:56] LABS: pH 7.198 (7.360-7.450)
--- NOTE | 2020-12-24 18:35 | HC ---
[facility] [place] [address] [place] [address] CONSULTATION Name: CLEVE GRANGER Room #: 244-P ADM IN M.R.#: [id number] Admission: 12/11/20 Attend Phys: Bk Kuhn Discharge: Date of : 47 Report #: [id number] THIS REPORT FOR: cc: DORI DOWLING Physician not on staff Rufus Ny MD ~ REQUESTING CLINICIAN: Lindsay Wick. REASON FOR CONSULTATION: Thrombocytopenia. HISTORY OF PRESENT ILLNESS: The patient is a 75-year-old male in the ICU at [facility]. His history is notable for recent spontaneous pneumothorax for which he received pleurodesis on 11/15/2020. He was readmitted for shortness of breath and found to be COVID positive on 12/11/2020. On 12/15/2020, his platelets were 228,000. On the , 123,000; on 12/20/2020, 88,000; on 12/22/2020, 71,000 and today 12/23/2020, 50,000. Hemoglobin today is 8.1, white count is 14.3 with segs and bands, but no acute changes. Recent creatinine 1. Recent TSH, folate and B12 are unremarkable. Note, the patient had a CAT scan on 12/11/2020. It did raise a question of bilateral hilar adenopathy and mediastinal adenopathy with lymph nodes up to about 3.3. Also, question of some marrow changes. With review of medications, he had been on heparin, which has been held for several days and the HIT antibody is pending. He also has been started on amiodarone about 12/15/2020. History is not really obtainable, but there is no mention of coagulopathy or thrombocytopenia or blood disorder. FAMILY HISTORY: Not obtainable at this time. MEDICATIONS: currently on include amiodarone 200 mg b.i.d., methylprednisolone 40 q. 12 hours, Levalbuterol respiratory therapy p.r.n., vitamin C 1500 mg b.i.d., insulin on various doses, Digoxin 0.125 daily, metoprolol 5 mg q.6 hours IV p.r.n., fentanyl p.r.n., norepinephrine drip p.r.n., insulin on a sliding scale. The patient had been on Lovenox up until 12/20/2020. Famotidine 20 b.i.d. IV, propofol p.r.n., thiamine daily, zinc sulfate 220 daily, vitamin D 2000 units daily, atorvastatin 20 daily, diphenhydramine 25 mg p.r.n., gabapentin 100 mg b.i.d., hydrocodone p.r.n., Tylenol p.r.n., MiraLax p.r.n. PHYSICAL EXAMINATION: GENERAL: The patient appears his stated age. He is on a mechanical ventilator in the ICU. VITAL SIGNS: Recent height was 5 feet 11 inches, 180.34 cm. Recent weight 248 pounds, 112.5 kilograms. Other times, it has been in last several days 232, so that to free it may be a little inaccurate. Recent blood pressures include a blood pressure of 127/59, O2 sat 91%, pulse 110, respirations 17, oral temperature 99.0. NEUROLOGIC: The patient is mechanically ventilated, does not respond to light [facility] [address] [place] [address] CONSULTATION Name: CLEVE GRANGER Room #: 244-P ADM IN M.R.#: [id number] Admission: 12/11/20 Attend Phys: Bk Kuhn Discharge: Date of : 47 Report #: [id number] touch or light voice. HEENT: Face appears symmetric. LYMPHATICS: No enlarged lymph nodes in the supraclavicular, cervical, axillary or inguinal region. ABDOMEN: Slightly protuberant. Does not appear to have any masses. Does not appear to be tender, but it is difficult to assess. EXTREMITIES: Maybe some trace edema. SKIN: Does not appear to have any unusual ecchymosis or bruising. No blood from the nasal oropharynx. ASSESSMENT AND PLAN: 1. Thrombocytopenia with drop since admission, heparin already held. We will ask PharmD is to reevaluate amiodarone risk. It is listed as having blood dyscrasias, but not a percentage can continue for now. Await heparin antibodies. We will also check immature platelet fraction to see if reduction is an issue. We will check ultrasound of legs to make sure the patient is not having occult subclinical clot formation. B12, folate, thyroid have already been checked. We will check iron panel. Given questionable marrow changes, we will check a serum protein electrophoresis. We will follow serially. No indications for the patient's bleeding, so I would not transfuse at this time. 2. COVID positive with pneumonia, IV anti-infectives and supportive care per others. 3. Respiratory failure. Continue mechanical ventilation. 4. Atrial fibrillation, had been anticoagulated, currently held on amiodarone and digoxin and other agents per Cardiology. 5. Bilateral hilar adenopathy and mediastinal adenopathy from early 12/2020. We will need followup scan at some point. 6. Questionable bone marrow changes on CAT scan and serum protein electrophoresis pending. 7. Renal insufficiency history. Recent creatinine good at 1.0. 8. Hyperglycemia, sliding scale insulin. 9. History of hyperlipidemia, statins. 10. Vitamin deficiency, continues replacement. We will follow with you. <ELECTRONICALLY SIGNED> By: Rufus Ny MD 12/24/20 1835 [id number] Rufus Ny MD /nt
[2020-12-25] VITALS (12 sets, daily range): BP systolic 68–102; BP diastolic 40–64
[2020-12-25 09:50] LABS: HEMATOCRIT 27.8 % (42.0-52.0); HEMOGLOBIN 8.8 gm/dL (14.0-18.0); MCH 30.1 pg (26.0-34.0); MCHC 31.5 g/dL (28.0-37.0); MCV 95.6 fL (80.0-100.0); RBC 2.91 mil/uL (4.50-6.00); RDW 16.1 % (10.5-14.5); WBC 9.9 thou/uL (4.0-11.0)
[2020-12-25 12:03] LABS: HEMOGLOBIN 8.3 gm/dL (14.0-18.0)
[2020-12-25 12:05] LABS: HEMATOCRIT 26.6 % (42.0-52.0); MCH 30.5 pg (26.0-34.0); MCHC 31.1 g/dL (28.0-37.0); MCV 97.9 fL (80.0-100.0); RBC 2.72 mil/uL (4.50-6.00); WBC 10.9 thou/uL (4.0-11.0)
[2020-12-25 12:17] LABS: ALBUMIN 0.8 g/dL (3.4-5.0); CALCIUM 9.5 mg/dL (8.5-10.1); TOTAL BILIRUBIN 1.3 mg/dL (0.2-1.0); TOTAL PROTEIN 4.1 g/dL (6.4-8.2); TROPONIN-I 0.17 ng/mL (<0.06)
[2020-12-25 12:19] LABS: CREATININE 2.3 mg/dL (0.7-1.3)
[2020-12-25 12:24] LABS: POTASSIUM 8.9 mmol/L (3.5-5.1)
--- NOTE | 2020-12-25 12:40 | EKG ---
[place] [address] [address] [facility] [place] [address] ELECTROCARDIOGRAM REPORT Name: CLEVE GRANGER Room #: 244-P ADM IN M.R.#: [id number] Admission: 12/11/20 Attend Phys: Bk Kuhn Discharge: Date of : 47 Report #: [id number] [facility] Test Date: 2020-12-25 Test Time: 11:28:44 Pat Name: CLEVE GRANGER Department: Room: 244 P Gender: M Rolled Gold Plater: MARYA : 1945 Requested By: Juan Alberto Alejandro Order Number: [id number] MD: Chito Ohara Measurements Intervals Holmen Rate: 101 P: MN: QRS: 139 QRSD: 144 T: 1 QT: 403 QTc: 523 Interpretive Statements Atrial fibrillation with aberration due to electrolyte abnormality vs i idioventricular rhythm. Evidence of ST segment elevations noted anteriorly. Electronically Signed On 12-25-2020 12:39:59 [employer]PER[employer] by Chito Ohara [email or web address] <ELECTRONICALLY SIGNED> By: Chito Ohara MD 12/25/20 1239 [id number] MD SIMA Arreguin
[2020-12-25 12:42] LABS: APTT 37.1 Seconds (24.5-32.8); INR 1.4; PROTIME 15.5 Seconds (9.3-11.4)
[2020-12-25 13:11] LABS: ATYPICAL LYMPHS 2 %; METAMYELOCYTES 2 %; NUCLEATED RBCS 1 /100WBC
[2020-12-25 13:13] LABS: LARGE PLATELETS FEW
[2020-12-25 13:14] LABS: ABSOLUTE NEUTROPHILS 8.8 thou/uL (1.4-8.2)
[2020-12-25 13:15] LABS: PLATELET COUNT 12 thou/uL (150-400)
[2020-12-25 13:27] LABS: ATYPICAL LYMPHS 1 %; METAMYELOCYTES 3 %; NUCLEATED RBCS 3 /100WBC
[2020-12-25 13:28] LABS: PLATELET COUNT 13 thou/uL (150-400)
[2020-12-25 13:29] LABS: LARGE PLATELETS FEW
[2020-12-28 09:11] LABS: HEMOGLOBIN 8.2 g/dL (13.0-17.7)
[2020-12-28 17:06] LABS: GLOBULIN TOTAL 2.8 g/dL (2.2-3.9); M-SPIKE 0.1 g/dL (Not Observed)
== END 2020-12-25 12:04 | DRG 207 ==
LOC: ER 12:57 → EROBS 15:22 → 3W 15:22 → ICU 12-16 06:04
PROVIDERS: Hospitalist; Internal Medicine; Internal Medicine Cardiovascular Disease; Internal Medicine Hematology & Oncology; Internal Medicine Pulmonary Disease; Nurse Practitioner Family; Pediatrics; Physician Assistant; Specialist; ADMIT Hospitalist; ATTEND Hospitalist
PROC: XW033E5 Introduction of Remdesivir Anti-infective into Peripheral Vein, Percutaneous Approach, New Technology Group 5 (ICD-10-PCS; principal; 2020-12-12)
PROC: XW13325 Transfusion of Convalescent Plasma (Nonautologous) into Peripheral Vein, Percutaneous Approach, New Technology Group 5 (ICD-10-PCS; principal; 2020-12-12)
PROC: 5A0945A Assistance with Respiratory Ventilation, 24-96 Consecutive Hours, High Flow/Velocity Cannula (ICD-10-PCS; principal; 2020-12-12)
PROC: 5A09357 Assistance with Respiratory Ventilation, Less than 24 Consecutive Hours, Continuous Positive Airway Pressure (ICD-10-PCS; 2020-12-13)
PROC: 5A09357 Assistance with Respiratory Ventilation, Less than 24 Consecutive Hours, Continuous Positive Airway Pressure (ICD-10-PCS; 2020-12-14)
PROC: 5A0945A Assistance with Respiratory Ventilation, 24-96 Consecutive Hours, High Flow/Velocity Cannula (ICD-10-PCS; 2020-12-15)
PROC: 5A09357 Assistance with Respiratory Ventilation, Less than 24 Consecutive Hours, Continuous Positive Airway Pressure (ICD-10-PCS; 2020-12-15)
PROC: 0BH17EZ Insertion of Endotracheal Airway into Trachea, Via Natural or Artificial Opening (ICD-10-PCS; 2020-12-16)
PROC: 5A09357 Assistance with Respiratory Ventilation, Less than 24 Consecutive Hours, Continuous Positive Airway Pressure (ICD-10-PCS; 2020-12-16)
PROC: 5A1955Z Respiratory Ventilation, Greater than 96 Consecutive Hours (ICD-10-PCS; 2020-12-16)
PROC: B548ZZA Ultrasonography of Superior Vena Cava, Guidance (ICD-10-PCS; 2020-12-16)
PROC: 02HV33Z Insertion of Infusion Device into Superior Vena Cava, Percutaneous Approach (ICD-10-PCS; 2020-12-16)
DX: U07.1 COVID-19 (principal); J12.82 Pneumonia due to coronavirus disease 2019; J96.21 Acute and chronic respiratory failure with hypoxia; N17.9 Acute kidney failure, unspecified; E46 Unspecified protein-calorie malnutrition; J44.0 Chronic obstructive pulmonary disease with (acute) lower respiratory infection; I48.91 Unspecified atrial fibrillation; M54.16 Radiculopathy, lumbar region; M54.30 Sciatica, unspecified side; M17.0 Bilateral primary osteoarthritis of knee; E78.5 Hyperlipidemia, unspecified; L43.9 Lichen planus, unspecified; I12.9 Hypertensive chronic kidney disease with stage 1 through stage 4 chronic kidney disease, or unspecified chronic kidney disease; R59.0 Localized enlarged lymph nodes; N18.9 Chronic kidney disease, unspecified; E11.65 Type 2 diabetes mellitus with hyperglycemia; R04.0 Epistaxis; D64.9 Anemia, unspecified; E55.9 Vitamin D deficiency, unspecified; D69.6 Thrombocytopenia, unspecified; E11.22 Type 2 diabetes mellitus with diabetic chronic kidney disease; S31.000A Unspecified open wound of lower back and pelvis without penetration into retroperitoneum, initial encounter; E11.42 Type 2 diabetes mellitus with diabetic polyneuropathy; X58.XXXA Exposure to other specified factors, initial encounter; Y93.89 Activity, other specified; Y92.89 Other specified places as the place of occurrence of the external cause; Y99.8 Other external cause status; Z87.891 Personal history of nicotine dependence; Z68.34 Body mass index [BMI] 34.0-34.9, adult; Z79.01 Long term (current) use of anticoagulants
CPT/HCPCS: 10078; 10879